=== PATIENT | female | born 1970 | race Caucasian/White ===

== ENCOUNTER 2023-12-01 13:29 | Outpatient (OUT) | payer MEDICAID, SELFPAY ==
[2023-12-01 14:26] LABS: Estimated Average Glucose 105 mg/dL; Glycohemoglobin A1C 5.3 % (4.5-6.2)
[2023-12-01 15:25] LABS: Alanine Aminotransferase 17 U/L (14-59); Albumin Globulin Ratio 0.9; Albumin Level 3.6 g/dL (3.4-5.0); Alkaline Phosphatase 87 U/L (46-116); Anion Gap 10.2; Aspartate Amino Transferase 11 U/L (15-37); BUN Creatinine Ratio 13.8; Bilirubin Total 0.2 mg/dL (0.2-1.0); Calcium 8.9 mg/dL (8.5-10.1); Chloride 102 mmol/L (98-107); Chol HDL Ratio 6.1; Cholesterol 282 mg/dL (<=200); Estimated GFR (African America >60 (>=60); Estimated GFR (Non-African Ame >60 (>=60); Free T3 2.07 pg/mL (2.18-3.98); Globulin 4.2 g/dL; Glucose 91 mg/dL (74-106); HDL Cholesterol 46 mg/dL (40-60); Potassium 4.2 mmol/L (3.5-5.1); Sodium 136 mmol/L (136-145); Thyroid Stimulating Hormone 1.183 uIU/mL (0.358-3.740); Total Protein 7.8 g/dL (6.4-8.2); Triglycerides 143 mg/dL (<=150); VLDL CHOLESTEROL 28.6 mg/dL
[2023-12-01 16:41] LABS: Basophils Absolute Auto 0.1 10^3/uL (0.0-0.1); Basophils Percent Auto 0.9 % (0.2-2.0); Eosinophils Absolute Auto 0.6 10^3/uL (0.0-0.7); Eosinophils Percent Auto 6.8 % (0.9-7.0); Hemoglobin 14.5 g/dL (12.0-16.0); Immature Granulocytes Abs Auto 0.02 10^3/uL (0.00-0.03); Immature Granulocytes Pct Auto 0.2 % (0.0-0.5); Lymphocytes Absolute Auto 2.6 10^3/uL (1.2-3.8); Lymphocytes Percent Auto 32.8 % (20.5-60.0); Mean Corpuscular Hemoglobin 29.1 pg (26.7-34.0); Mean Corpuscular Volume 88.4 fL (81.0-99.0); Mean Platelet Volume 11.2 fL (9.5-13.5); Monocytes Absolute Auto 0.4 10^3/uL (0.3-0.8); Monocytes Percent Auto 4.9 % (1.7-12.0); Neutrophils Absolute Auto 4.4 10^3/uL (1.4-6.5); Neutrophils Percent Auto 54.4 % (43.0-75.0); Platelet Count 299 10^3/uL (150-450); Red Blood Count 4.98 10^6/uL (4.20-5.40); Red Cell Distribution Width 13.2 % (11.0-15.0)
[2023-12-02 12:09] LABS: Insulin 11.5 uIU/mL (2.6-24.9)
== END 2023-12-01 13:30 | disposition home or self-care (01) ==
LOC: LAB 13:31
PROVIDERS: PCP Nurse Practitioner Family; Visit Provider Nurse Practitioner Family
DX: E66.3 Overweight (principal)
CPT/HCPCS: 36415; 80053; 80061; 83036; 83525; 84436; 84443; 84481; 85025

== ENCOUNTER 2024-01-10 09:28 | Outpatient (OUT) | payer MEDICAID, SELFPAY ==
--- OUTSIDE RECORDS SUMMARY | 2024-01-10 09:41 | XMS_ITS | CCD ---
Author Organization [facility] Care Team Providers Care Rabbet Operator Name Role Phone Temple, Rewa Unavailable Unavailable Temple, Rewa Unavailable Unavailable Tempel Unavailable Unavailable LMH Unavailable Unavailable Temple, Rewa Unavailable Unavailable Bravo Ayala Attending Unavailable BrandDerek mosher C Primary Care Unavailable BRANDDEREK MOSHER C Consulting Unavailable CHAYA MCKAY Consulting Unavailable Bravo Ayala Admitting Unavailable Bravo Ayala Attending Unavailable Derek Hermosillo C Primary Care Unavailable Bravo Ayala Attending Unavailable BrandadityaerryDerek C Primary Care Unavailable LIZBETH COLLINS Attending Unavaila ble Brandnomi, Derek C Primary Care Unavailable BRANDADIYTAERRYDEREK C Consulting Unavailable PJ LINDSEY Attending Unavailable CLAUDY CLAYTON Attending Unavailable None, Physician Primary Care Provider [phone] MD Jose Packer Attending Provider [phone] MD Jose Packer Primary Care Provider JENNY Cuelalr Attending Provider Maryam Packer MD Primary Care Provider [phone] MD Jose Packer Primary Care Provider MD Jose Packer Attending Provider MARYAM PACKER Primary Care Unavailable BRIANNE CUELLAR Referring Unavailable POONAM SÁNCHEZ Attending Unavailable MARYAM PACKER Primary Care Unavailable MD Jose Packer Primary Care Provider MD Edwin Kraus Attending Provider [phone] MARYAM PACKER Primary Care Unavailable ZACHARY ORNELAS Attending Unavailable KARLI OJEDA Attending Unavailable KARLI OJEDA Attending Unavailable KARLI OJEDA Referring Unavailable SARKIS ONOFRE Attending Unavailable Allergies Allergy Classification Reported Allergen(s) Allergy Type Date of Onset Reaction(s) Facility (9 sources) Latex; Translations: [Unknown] Allergy to substance (disorder) 6 red and itchy skin, rash/itching [facility] Repository (2 sources) NO KNOWN DRUG ALLERGIES Allergy to substance (disorder) [facility] (2 sources) -No Known Food Allergies Allergy to substance (disorder) [facility] Medications Current Medications Medication Drug Class(es) Dates Sig (Normalized) Sig (Original) amLODIPine 5 mg oral tablet (2 sources) Dihydropyridine Calcium Channel Ibis Start: 08-10-2021 take 1 tablet by mouth once daily amLODIPine (NORVASC) 5 MG tablet take 1 tablet by mouth once daily 0 08/10/2021 Active diazePAM 5 mg oral tablet (3 sources) Benzodiazepine Start: 08-30-2018 take 5 mg by mouth every six hours as needed Diazepam Active 5 MG PO Every 6 hr as needed 12 5 August 30, 2018 3:08pm diphenhydrAMINE hydrochloride 25 mg oral capsule (3 sources) Histamine-1 Receptor Antagonist Start: 01-15-2019 take 25 mg by mouth every six hours as needed Diphenhydramine Hcl Active 25 MG PO Every 6 hr as needed 15 3 January 15, 2019 6:43am FLUoxetine 20 mg oral tablet (3 sources) Serotonin Reuptake Inhibitor Start: 01-15-2018 End: 08-28-2021 take 1 tablet by mouth once daily FLUoxetine (PROZAC) 20 MG tablet Indications: Depression with anxiety Take 1 tablet by mouth daily 30 tablet 3 01/15/2018 08/28/2021 Discontinued (LIST CLEANUP) Start: 09-01-2015 End: 11-06-2015 take 1 capsule by mouth once daily in the morning fluoxetine 20 mg oral capsule 09/01/2015 11/06/2015 take 1 capsule (20 mg) by oral route once daily in the morning patient no longer taking it gabapentin 600 mg oral tablet (10 sources) Anti-epileptic Agent Start: 06-28-2017 take 600 mg by mouth three times daily Gabapentin Active 600 MG PO Three Times Daily 0 November 02, 2017 12:14pm Start: 05-05-2016 End: 10-18-2016 take 1 tablet by mouth four times daily gabapentin 600 mg oral tablet 05/05/2016 10/18/2016 take 1 tablet by oral route 4 times a day Start: 09-01-2015 End: 11-06-2015 take 1 tablet by mouth four times daily gabapentin 600 mg oral tablet 09/01/2015 11/06/2015 take 1 tablet by oral route 4 times a day Neurontin 600 mg take 600 mg three times daily glecaprevir 100 mg / pibrentasvir 40 mg oral tablet (2 sources) Start: 07-30-2021 MAVYRET 100-40 MG TABS tablet hydrOXYzine pamoate 100 mg oral capsule (3 sources) Antihistamine Start: 11-21-2017 End: 08-28-2021 take 1 capsule by mouth every six hours for anxiety hydrOXYzine (VISTARIL) 100 MG capsule Indications: Depression with anxiety , Psychophysiological insomnia take 1 capsule by mouth every 6 hours if needed for anxiety 90 capsule 2 11/21/2017 08/28/2021 Discontinued (LIST CLEANUP) Start: 11-06-2015 End: 03-03-2016 take 1-2 tablets by mouth three times daily as needed for anxiety atarax 25 mg tablet 11/06/2015 03/03/2016 1-2 tablets PO TID as needed for anxiety ibuprofen 800 mg oral tablet (5 sources) Nonsteroidal Anti-inflammatory Drug Start: 10-30-2017 take 800 mg by mouth every eight hours as needed Ibuprofen Active 800 MG PO Every 8 hr as needed October 30, 2017 12:29pm lisinopril 10 mg oral tablet (2 sources) Angiotensin Converting Enzyme Inhibitor Start: 08-11-2021 take 1 tablet by mouth once daily lisinopril (PRINIVIL;ZESTRI L) 10 MG tablet take 1 tablet by mouth once daily 0 08/11/2021 Active omeprazole 40 mg delayed release oral capsule (7 sources) Proton Pump Inhibitor Start: 08-17-2018 take 40 mg by mouth once daily Omeprazole Active 40 MG PO Daily August 30, 2018 3:13pm Start: 04-21-2017 End: 08-19-2017 take 1 capsule by mouth once daily omeprazole 40 mg oral capsule,delayed release(DR/EC) 04/21/2017 08/19/2017 take 1 capsule by oral route daily predniSONE 50 mg oral tablet (6 sources) Start: 08-30-2018 take 50 mg by mouth once daily Prednisone Active 50 MG PO Daily 3 January 15, 2019 6:43am QUEtiapine 100 mg oral tablet (2 sources) Atypical Antipsychotic Start: 08-11-2021 take 1 tablet by mouth at bedtime QUEtiapine (SEROQUEL) 100 MG tablet take 1 tablet by mouth at bedtime 0 08/11/2021 Active tiZANidine 4 mg oral tablet (5 sources) Central alpha-2 Adrenergic Agonist Start: 02-07-2017 End: 08-28-2021 take 1 tablet by mouth every eight hours for muscle spasms tiZANidine (ZANAFLEX) 4 MG tablet take 1 tablet by mouth every 8 hours if needed for back SPASM 60 tablet 3 12/26/2017 08/28/2021 Discontinued (LIST CLEANUP) traZODone hydrochloride 100 mg oral tablet (5 sources) Serotonin Reuptake Inhibitor Start: 04-21-2017 End: 08-28-2021 take 1 tablet by mouth once daily as needed for sleep traZODone (DESYREL) 100 MG tablet Indications: Depression with anxiety , Psychophysiological insomnia Take 1 tablet by mouth nightly as needed for Sleep 90 tablet 3 08/15/2017 08/28/2021 Discontinued (LIST CLEANUP) take 1 tablet by diana th twice daily after mealtime trazodone 150 mg oral tablet take 1 tabl et (150 mg) by oral route 2 times per day after meals Completed/Discontinued Medications Medication Drug Class(es) Dates Sig (Normalized) Sig (Original) fluconazole 150 mg oral tablet (2 sources) Azole Antifungal Start: 02-09-2015 End: 03-02-2015 take 1 tablet by mouth once Diflucan 150 mg oral tablet 02/09/2015 03/02/2015 take 1 tablet (150 mg) by oral route once fluticasone propionate 0.05 mg/actuat metered dose nasal spray (2 sources) Corticosteroid Start: 06-01-2015 End: 09-01-2015 take 1 spray(s) nasal route once daily fluticasone 50 mcg/actuation nasal spray,suspension 06/01/2015 09/01/2015 inhale 1 spray (50 mcg) in each nostril by intranasal route once daily metroNIDAZOLE 500 mg oral tablet (4 sources) Nitroimidazole Antimicrobial Start: 03-04-2016 End: 03-11-2016 take 1 tablet by mouth twice daily Flagyl 500 mg oral tablet 03/04/2016 03/11/2016 take 1 tablet (500 mg) by oral route 2 times per day for 7 days Start: 02-11-2015 End: 02-18-2015 take 1 tablet by mouth twice daily Flagyl 500 mg oral tablet 02/11/2015 02/18/2015 take 1 tablet (500 mg) by oral route 2 times per day for 7 days ondansetron 4 mg disintegrating oral tablet (2 sources) Serotonin-3 Receptor Antagonist Start: 11-01-2016 End: 04-21-2017 take 1 tablet by mouth twice daily as needed ondansetron 4 mg oral tablet,disintegrating 11/01/2016 04/21/2017 dissolve 1 tablet by oral route 2 times a day as needed pregabalin 100 mg oral capsule (4 sources) Start: 12-19-2016 End: 04-21-2017 take 1 capsule by mouth three times daily Lyrica 100 mg oral capsule 12/19/2016 04/21/2017 take 1 capsule (100 mg) by oral route 3 times per day Start: 11-06-2015 End: 11-06-2015 take 2 capsules by mouth twice daily Lyrica 75 mg oral capsule 11/06/2015 11/06/2015 take 2 capsules (150 mg) by oral route 2 times per day Start: 11-06-2015 End: 11-06-2015 take 2 capsules by mouth twice daily Lyrica 75 mg oral capsule 11/06/2015 11/06/2015 take 2 capsules (150 mg) by oral route 2 times per day 24 hr venlafaxine 75 mg extended release oral capsule (2 sources) Serotonin and Norepinephrine Reuptake Inhibitor take 1 capsule by mouth once daily at mealtime Effexor XR 75 mg oral capsule,extended release 24hr take 1 capsule (75 mg) by oral route once daily with food Problems Active Problems Problem Classification Problem Date Documented Date Episodic/Chronic Adjustment disorders (2 sources) Adjustment disorder with mixed anxiety and depressed mood Onset: 03-02-2015 Chronic Administrative/social admission (3 sources) Other reasons for seeking consultation; Translations: [Encounter for issue of repeat prescription] Onset: 11-18-2016 Episodic Anxiety disorders (20 sources) Anxiety; Translations: [Anxiety state, unspecified] Onset: 12-27-2012 08-20-2017 Chronic Chronic obstructive pulmonary disease and bronchiectasis (2 sources) Bronchitis, not specified as acute or chronic; Translations: [Bronchitis, not specified as acute or chronic] Onset: 01-23-2023 Episodic Esophageal disorders (15 sources) Reflux esophagitis; Translations: [Gastro-esophageal reflux disease with esophagitis] Onset: 03-02-2015 06-28-2017 Chronic Hepatitis (16 sources) Chronic hepatitis C without mention of hepatic coma; Translations: [Chronic hepatitis C] Onset: 06-01-2015 Resolved: 06-28-2017 06-28-2017 Chronic Hepatitis (4 sources) Unspecified viral hepatitis C without hepatic coma; Translations: [Viral hepatitis C] Onset: 12-16-2016 06-28-2017 Episodic Mood disorders (10 sources) Major depressive affective disorder, recurrent episode, mild; Translations: [Major depressive affective disorder, recurrent episode, moderate] Onset: 12-27-2012 Chronic Open wounds of extremities (1 source) Laceration of hand without foreign body; Translations: [Laceration without foreign body of left hand, initial encounter] Episodic Osteoarthritis (4 sources) Arthritis; Translations: [Arthritis] Chronic Other non-traumatic joint disorders (2 sources) Arthropathy, unspecified, site unspecified Onset: 11-18-2016 Chronic Other nutritional; endocrine; and metabolic disorders (14 sources) Obesity, unspecified; Translations: [Simple obesity ] Onset: 06-01-2015 Chronic Other nutritional; endocrine; and metabolic disorders (2 sources) Body mass index 30+ - obesity; Translations: [Obesity, unspecified] 08-20-2017 Chronic Residual codes; unclassified (2 sources) Insomnia; Translations: [Insomnia, unspecified] 08-15-2017 Episodic Skin and subcutaneous tissue infections (3 sources) Abscess of abdominal wall; Translations: [Cutaneous abscess of abdominal wall] Episodic Spondylosis; intervertebral disc disorders; other back problems (2 sources) Degeneration of lumbar intervertebral disc; Translations: [Other intervertebral disc degeneration, lumbar region] 06-28-2017 Chronic Substance-related disorders (20 sources) Tobacco use disorder; Translations: [Sedative, hypnotic or anxiolytic abuse, unspecified] Onset: 12-27-2012 06-28-2017 Chronic Unclassified (4 sources) Body Mass Index 34.0-34.9, adult; Translations: [Tobacco user] Onset: 12-16-2016 Chronic Unclassified (2 sources) back problems Unclassified (2 sources) Insulin resistant Unclassified (1 source) Cold Like Symptoms Onset: 04-22-2023 Past or Other Problems Problem Classification Problem Date Documented Da te Episodic/Chronic Abdominal hernia (1 source) Diaphragmatic hernia without obstruction or gangrene; Translations: [Diaphragmatic hernia without obstruction or gangrene] Onset: 06-28-2017 Episodic Abdominal pain (2 sources) Generalized abdominal pain; Translations: [Generalized abdominal pain] Onset: 10-14-2015 Resolved: 06-28-2017 06-28-2017 Episodic Biliary tract disease (2 sources) Gallstone; Translations: [Calculus of gallbladder without cholecystitis without obstruction] Onset: 10-14-2015 Resolved: 06-28-2017 06-28-2017 Episodic Gastrointestinal hemorrhage (2 sources) Rectal hemorrhage; Translations: [Hemorrhage of anus and rectum] Onset: 10-14-2015 Resolved: 06-28-2017 06-28-2017 Episodic Immunizations and screening for infectious disease (2 sources) Screening examination for venereal disease Onset: 05-13-2015 Episodic Medical examination/evaluation (20 sources) Dental examination; Translations: [Routine general medical examination at a health care facility] Onset: 12-27-2012 Episodic Other aftercare (2 sources) Encounter for therapeutic drug monitoring Onset: 01-16-2017 Episodic Other female genital disorders (2 sources) Unspecified noninflammatory disorder of vagina Onset: 02-09-2015 Episodic Other nutritional; endocrine; and metabolic disorders (2 sources) Abnormal weight gain Onset: 09-01-2015 Episodic Spondylosis; intervertebral disc disorders; other back problems (20 sources) Lumbago; Translations: [Low back pain] Onset: 03-02-2015 Episodic Unclassified (2 sources) Other screening mammogram Onset: 01-16-2017 Episodic Unclassified (1 source) [id number] llness_name_3 Unclassified (1 source) [id number] llness_name_5 Unclassified (1 source) [id number] llness_name_3 Unclassified (1 source) [id number]_name_5 Results Test Name Value Interpretation Reference Range Facility SARS/FLU A+B/RSV by NAAT/Mol [facility] 04-22-2023 SARS/FLU A+B/RSV by NAAT/Molecular FLU A PCR Negative (qualifier value) FLU B PCR Negative (qualifier value) RSV by PCR Negative (qualifier value) SARS CoV 2 Not detected (qualifier value) NOTE The Xpert Xpress SARS-CoV-2/Flu/RSV Plus test is a rapid, multiplexed real-time RT-PCR test intended for the simultaneous qualitative detection and differentiation of SARS-CoV-2, influenza A, influenza B and respiratory syncytial virus (RSV) viral RNA from individuals suspected of respiratory viral infection consistent with COVID-19 by their healthcare provider. This test has not been validated in asymptomatic patients. The Xpert Xpress SARS-CoV-2 test is intended for use by qualified and trained operators who are performing tests using either [employer] or [employer] systems and is limited to laboratories that meet the CLIA requirements to perform high and moderate complexity tests. The Xpert Xpress SARS-CoV-2/Flu/RSV Plus is only for use under the Food and Drug Administration's Emergency Use Authorization. Results are for the simultaneous detection and differentiation of SARS-CoV-2, influenza A, influenza B and RSV nucleic acids in clinical specimens. SARS-CoV-2, influenza A, influenza B and RSV RNA identified by this test are generally detectable in upper respiratory samples during the acute phase of infection. Positive results are indicative of the presence of the identified virus, but do not rule out bacterial infection or co-infection with other pathogens not detected by this test. Clinical correlation with patient history and other diagnostic information is necessary to determine patient infection status. The agent detected may not be the definite cause of disease. Negative results do not preclude SARS-CoV-2, influenza A, influenza B and RSV infection and should not be used as the sole basis for treatment or other patient management decisions. Negative results must be combined with clinical observations, patient history and epidemiological information. An Invalid result may occur with specimen-associated inhibition unable to be resolved with specimen repeat. Fact Sheet for Healthcare Providers: https://www.fda.gov/m edia/000847/download Fact Sheet for Patients: https://www.fda.gov/m edia/008086/download Normal [facility] XR CHEST 1 VWon 04-22-2023 XR CHEST 1 VW XR CHEST 1 VW Single view chest History:cough Difficulty breathing, shortness of breath Comparison: None Findings: Single portable view of the chest. No focal opacity, effusion or pneumothorax. Cardiomediastinal silhouette is within normal limits. Impression: No evidence of acute cardiopulmonary process. Finalized by Elvis Chowdhury MD on 04/22/2023 5:31 PM Normal [facility] HCV RNA Quant W/Rflx Genotyp danni 09-22-2021 HCV RNA Detect/Quant Not detected Normal Undetected [facility] Comment on above: Result Comment: Resu lt in log IU/mL is Undetected. Genotype testing was not performed due to HCV viral load below 500 IU/mL. ADDITIONAL INFORMATION The quantification range of this assay is 15 to 100,000,000 IU/mL (1.18 log to 8.00 log IU/mL). Testing was performed using the flavia HCV test ([employer] with the flavia 6800 System. Test Performed by: [place] [address] Dry Primer Powder Blender: Sandeep Collins M.D. Ph.D.; CLIA# [id number] Performed By: #### L 800.4901, L800.4806, L800.0300, L800.4760 #### Main Laboratory ([facility]) [address] [place] [address] Capo Rosario MD ANION GAPon 09-08-2021 Anion gap [Moles/Vol] 13.0 mmol/L Normal 8.0-16.0 [facility] Comment on above: Result Comment: ANIO N GAP = Sodium -(Chloride + CO2) Performed By: #### C MP, EGFR1, CBCND, ANION #### [facility] [address] [place] [address] Anion Gapon 09-08-2021 Anion gap [Moles/Vol] 13.0 mmol/L 8.0 - 16.0 meq/L [facility] Comment on above: ANION GAP = Sodium - (Chloride + CO2) Performed at [facility] [address] [place] [address] CBC NO DIFFERENTIALon 2021 Erythrocyte distribution width (RBC) [Ratio] 13.6 % Normal 11.5-14.5 [facility] Comment on above: Performed By: #### C MP, EGFR1, CBCND, ANION #### [place] [address] Hematocrit (Bld) [Volume fraction] 36.3 % Low 37.0-47.0 [facility] Comment on above: Performed By: #### C MP, EGFR1, CBCND, ANION #### [place] [address] Hemoglobin (Bld) [Mass/Vol] 11.7 g/dL Low 12.0-16.0 [facility] Comment on above: Performed By: #### C MP, EGFR1, CBCND, ANION #### [place] [address] MCH (RBC) [Entitic mass] 28.1 pg Normal 26.0-33.0 [facility] Comment on above: Performed By: #### C MP, EGFR1, CBCND, ANION #### [place] [address] MCHC (RBC) [Mass/Vol] 32.2 g/dL Normal 32.2-35.5 [facility] Comment on above: Performed By: #### C MP, EGFR1, CBCND, ANION #### [facility] [address] [place], [place] [id number] MCV (RBC) [Entitic vol] 87.1 fL Normal 81.0-99.0 [facility] Comment on above: Performed By: #### C MP, EGFR1, CBCND, ANION #### [place] [address] PLATELET 364 thou/mm3 Normal 130-400 [facility] Comment on above: Performed By: #### C MP, EGFR1, CBCND, ANION #### [place] [address] Platelet mean volume (Bld) [Entitic vol] 11.2 fL Normal 9.4-12.4 [facility] Comment on above: Performed By: #### C MP, EGFR1, CBCND, ANION #### [place] [address] RBC 4.17 mill/mm3 Low 4.20-5.40 [facility] Comment on above: Performed By: #### C MP, EGFR1, CBCND, ANION #### [place] [address] RDW-SD 42.6 fL Normal 35.0-45.0 [facility] Comment on above: Performed By: #### C MP, EGFR1, CBCND, ANION #### [place] [address] WBC 8.2 thou/mm3 Normal 4.8-10.8 [facility] Comment on above: Performed By: #### C MP, EGFR1, CBCND, ANION #### [place] [address] COMP. METABOLIC PANELon 08-25 Albumin [Mass/Vol] 4.4 g/dL Normal 3.5-5.1 [facility] Comment on above: Performed By: #### C MP, EGFR1, CBCND, ANION #### [place] [address] ALP [Catalytic activity/Vol] 108 U/L Normal 38-126 [facility] Comment on above: Performed By: #### C MP, EGFR1, CBCND, ANION #### [facility] [employer] [address] [place] [address] ALT [Catalytic activity/Vol] 17 U/L Normal 11-66 [facility] Comment on above: Performed By: #### C MP, EGFR1, CBCND, ANION #### [facility] [address] [place] [address] AST [Catalytic activity/Vol] 20 U/L Normal 5-40 [facility] Comment on above: Performed By: #### C MP, EGFR1, CBCND, ANION #### [facility] [address] [place] [address] Bilirubin [Mass/Vol] 0.7 mg/dL Normal 0.3-1.2 [facility] Comment on above: Performed By: #### C MP, EGFR1, CBCND, ANION #### [facility] [address] [place] [address] Calcium [Mass/Vol] 9.6 mg/dL Normal 8.5-10.5 [facility] Comment on above: Performed By: #### C MP, EGFR1, CBCND, ANION #### [address] [address] Chloride [Moles/Vol] 102 mmol/L Normal 98-111 [facility] Comment on above: Performed By: #### C MP, EGFR1, CBCND, ANION #### [facility] [employer] [address] [place] [address] CO2 [Moles/Vol] 23 mmol/L Normal 23-33 [facility] Comment on above: Performed By: #### C MP, EGFR1, CBCND, ANION #### [address] [address] Creatinine [Mass/Vol] 0.8 mg/dL Normal 0.4-1.2 [facility] Comment on above: Performed By: #### C MP, EGFR1, CBCND, ANION #### [facility] [address] [place] [address] Glucose [Mass/Vol] 128 mg/dL High 70-108 [facility] Comment on above: Performed By: #### C MP, EGFR1, CBCND, ANION #### [facility] [address] [place] [address] Potassium [Moles/Vol] 3.7 mmol/L Normal 3.5-5.2 [facility] Comment on above: Performed By: #### C MP, EGFR1, CBCND, ANION #### [facility] [address] [place] [address] Protein [Mass/Vol] 8.1 g/dL High 6.1-8.0 [facility] Comment on above: Performed By: #### C MP, EGFR1, CBCND, ANION #### [facility] [address] [place] [address] Sodium [Moles/Vol] 138 mmol/L Normal 135-145 [facility] Comment on above: Performed By: #### C MP, EGFR1, CBCND, ANION #### [facility] [address] [place] [address] Urea nitrogen [Mass/Vol] 17 mg/dL Normal 7-22 [facility] Comment on above: Performed By: #### C MP, EGFR1, CBCND, ANION #### [facility] [address] [place] [address] Comprehensive Metabolic Pane conchis 09-08-2021 Albumin [Mass/Vol] 4.4 g/dL 3.5 - 5.1 g/dL [facility] ALP (Bld) [Catalytic activity/Vol] 108 U/L 38 - 126 U/L [facility] ALT [Catalytic activity/Vol] 17 U/L 11 - 66 U/L [facility] Comment on above: Performed at [facility] [address] [place] [address] AST [Catalytic activity/Vol] 20 U/L 5 - 40 U/L [facility] Bilirubin [Mass/Vol] 0.7 mg/dL 0.3 - 1 .2 mg/dL [facility] Calcium [Mass/Vol] 9.6 mg/dL 8.5 - 10. 5 mg/dL [facility] Chloride [Moles/Vol] 102 mmol/L 98 - 111 meq/L [facility] CO2 [Moles/Vol] 23 mmol/L 23 - 33 meq/L [facility] Creatinine [Mass/Vol] 0.8 mg/dL 0.4 - 1.2 mg/dL [facility] Free PSA/Total PSA [Mass fraction] 8.1 g/dL High 6.1 - 8.0 g/dL [facility] Glucose [Mass/Vol] 128 mg/dL High 70 - 108 mg/dL [facility] [employer] Potassium [Moles/Vol] 3.7 mmol/L 3.5 - 5.2 meq/L [facility] Sodium [Moles/Vol] 138 mmol/L 135 - 145 meq/L [facility] [employer] Urea nitrogen (BldV) [Mass/Vol] 17 mg/dL 7 - 22 mg/dL [facility] GFR, ESTIMATEDon 09-08-2021 GFR/1.73 sq M.predicted MDRD (S/P/Bld) [Vol rate/Area] 76 mL/min/{1.73_m2} Abnormal [facility] Comment on above: Result Comment: Stag e Description GFR, ml/min/1.73 m2 - At increased risk > or = 60 (with chronic kidney disease risk factors) 1 Normal or increased GFR > or = 90 2 Mildly or decreased GFR 60 - 89 3 Moderately decreased GFR 30 - 59 4 Severely decreased GFR 15 - 29 5 Kidney failure <15 (or dialysis) Estimated GFR calculated using abbreviated MDRD formula as recommended by National Kidney Foundation. Calculation based upon serum creatinine and adjusted for age, gender & race. Olga Lidia. Internal Med., Vol. 139 (2) pg 137-147. Performed By: #### C MP, EGFR1, CBCND, ANION #### [employer] [address] [place] [address] Glomerular Filtration Rate, Estimatedon 09-08-2021 GFR/1.73 sq M.predicted MDRD (S/P/Bld) [Vol rate/Area] 76 mL/min/{1.73_m2} Abnormal ml/min/1.73m2 [facility] [employer] [facility] Comment on above: Stage Description GF R, ml/min/1.73 m2 - At increased risk > or = 60 (with chronic kidney disease risk factors) 1 Normal or increased GFR > or = 90 2 Mildly or decreased GFR 60 - 89 3 Moderately decreased GFR 30 - 59 4 Severely decreased GFR 15 - 29 5 Kidney failure <15 (or dialysis) Estimated GFR calculated using abbreviated MDRD formula as recommended by National Kidney Foundation. Calculation based upon serum creatinine and adjusted for age, gender & race. Olga Lidia. Internal Med., Vol. 139 (2) pg 137-147. Performed at [facility] [address] [place] [address] No Panel Informationon 09-08 Interpretation and review of laboratory results Abnormal [facility] CBCon 09-07-2021 Erythrocyte distribution width (RBC) [Ratio] 13.6 % 11.5 - 14.5 % [facility] Erythrocyte distribution width (RBC) [Ratio] 42.6 fL 35.0 - 45.[address] [facility] Hematocrit (Bld) [Volume fraction] 36.3 % Low 37.0 - 47.0 % [facility] Hemoglobin (Bld) [Mass/Vol] 11.7 g/dL Low [facility] Interpretation and review of laboratory results Abnormal [facility] MCH (RBC) [Entitic mass] 28.1 pg 26.0 - 33.[address] [facility] MCHC (RBC) [Mass/Vol] 32.2 g/dL [facility] MCV (RBC) [Entitic vol] 87.1 fL 81.0 - 99.[address] [facility] Platelet mean volume (Bld) [Entitic vol] 11.2 fL 9.4 - 12.[address] [facility] Comment on above: Performed at [facility] [address] [place] [address] Platelets (Bld) [#/Vol] 364 10*3/uL [facility] RBC (Bld) [#/Vol] 4.17 10*6/uL Low [facility] WBC (Bld) [#/Vol] 8.2 10*3/uL [facility] Hepatitis C PCR/Viral Loadon 06-10-2021 Hepatitis C PCR/Viral Load [id number] IU/mL [facility] Comment on above: Result Comment: Resu lt in log IU/mL is 7.11. ADDITIONAL INFORMATION The quantification range of this assay is 15 to 100,000,000 IU/mL (1.18 log to 8.00 log IU/mL). Testing was performed using the flavia HCV test ([employer] with the flavia 6800 System. Test Performed by: [place] [address] [employer] Primer Powder Blender: Sandeep Collins M.D. Ph.D.; CLIA# [id number] Performed By: #### L 800.4901, L800.4806, L800.0300, L800.4760 #### Main Laboratory ([facility]) [address] [place], [place] [id number] Capo Rosario MD Hepatitis C Virus Genotypeon 06-10-2021 HCV Genotype 1a High Undetected [facility] Comment on above: Result Comment: ---- ADDITIONAL INFORMATION This test was performed using the Waters RealTime HCV Genotype II assay ([employer] [place], [place]). Test Performed by: [place] [address] [employer] Pow[employer] Blender: Sandeep Collins M.D. Ph.D.; CLIA# [id number] Performed By: #### L 800.4901, L800.4806, L800.0300, L800.4760 #### Main Laboratory ([facility]) [facility] [place] [address] Capo Rosario MD HIV 1&2 Evaluationon 022 HIV 1&2 Evaluation Non-Reactive Normal Nonreactive [facility] Comment on above: Performed By: #### L 800.4901, L800.4806, L800.0300, L800.4760 #### Main Laboratory ([facility]) [facility], [place] [id number] Capo Rosario MD Hepatitis A Antibody, IgMon 06-09-2021 Hepatitis A Antibody, IgM Non-Reactive Normal Nonreactive [facility] Comment on above: Performed By: #### L 800.4901, L800.4806, L800.0300, L800.4760 #### Main Laboratory ([facility]) [address] [place], [place] [id number] Capo Rosario MD Hepatitis B Surface Abon Hepatitis B Surface Ab Non-Reactive Normal Nonreactive [facility] Comment on above: Performed By: #### L 800.4901, L800.4806, L800.0300, L800.4760 #### Main Laboratory ([facility]) [address] [place], [place] [address] Capo Rosario MD Hepatitis B Surface Agon Hep B Surface Antigen Non-Reactive Normal Nonreactive [facility] Comment on above: Performed By: #### L 800.4901, L800.4806, L800.0300, L800.4760 #### Main Laboratory ([facility]) [address] [place] [address] Capo Rosario MD Absolute lymphocyte counton 06-08-2021 Lymphocytes Auto (Unsp spec) [#/Vol] 2800 /cmm 7225-6920 [facility] Work Phone: Albumin [Mass/volume] in Ser um or Plasmaon 06-08-2021 Albumin [Mass/Vol] 3.5 g/dL 3.5-5.0 [facility] Work Phone: Amylaseon 06-08-2021 Amylase [Catalytic activity/Vol] 46 U/L Normal 30-100 [facility] Comment on above: Order Comment: Is Pa tient Fasting? Yes Performed By: #### L 800.4901, L800.4806, L800.0300, L800.4760 #### Main Laboratory ([facility]) [address] [place] [id number] Capo Rosario MD Basophils Auto (Bld) [#/Vol] on 06-08-2021 Basophils (Bld) [#/Vol] 0 /cmm 0-200 [facility] Work Phone: Basophils/100 WBC Auto (Bld) on 06-08-2021 Basophils/100 WBC (Bld) 0.5 % 0-2 [facility] Work Phone: Blood absolute eosinophil co unton 06-08-2021 Eosinophils (Bld) [#/Vol] 400 /cmm 0-500 [facility] Work Phone: [phone] Blood anion gapon 06-08-2021 Anion gap (Bld) [Moles/Vol] 6 mmol/L 4-12 [facility] Work Phone: Blood hematocrit (volume fra ction)on 06-08-2021 Hematocrit (Bld) [Volume fraction] 39.3 % 35.0-44.0 [facility] Work Phone: Blood hemoglobin measurement (mass/volume)on 06-08-2021 Hemoglobin (Bld) [Mass/Vol] 13.0 g/dL 12.0-15.0 [facility] Work Phone: CBC with Differentialon 05-25 Abs Baso Count 0 /cmm Normal 0-200 [facility] Comment on above: Performed By: #### L 800.4901, L800.4806, L800.0300, L800.4760 #### Main Laboratory ([facility]) [address] [place] [id number] Capo Rosario MD Abs Eos Count 400 /cmm Normal 0-500 [facility] Comment on above: Performed By: #### L 800.4901, L800.4806, L800.0300, L800.4760 #### Main Laboratory ([facility]) [address] [place], [place] [address] Capo Rosario MD Abs Lymph Count 2800 /cmm Normal 1003-5149 [facility] Comment on above: Performed By: #### L 800.4901, L800.4806, L800.0300, L800.4760 #### Main Laboratory ([facility]) [address] [place] [address] Capo Rosario MD Abs Shoshone Count 600 /cmm Normal 0-800 [facility] Comment on above: Performed By: #### L 800.4901, L800.4806, L800.0300, L800.4760 #### Main Laboratory ([facility]) [address] [place] [address] Capo Rosario MD Abs Neut Count 3200 /cmm Normal 5816-3519 [facility] Comment on above: Performed By: #### L 800.4901, L800.4806, L800.0300, L800.4760 #### Main Laboratory ([facility]) [address] [place], [place] [address] Capo Rosario MD Basophils/100 WBC (Bld) 0.5 % Normal 0-2 [facility] Comment on above: Performed By: #### L 800.4901, L800.4806, L800.0300, L800.4760 #### Main Laboratory ([facility]) [address] [place] [address] Capo Rosario MD EOS-Auto Diff 5.5 % Normal 0-6 [facility] Comment on above: Performed By: #### L 800.4901, L800.4806, L800.0300, L800.4760 #### Main Laboratory ([facility]) [address] [place] [address] Capo Rosario MD Erythrocyte distribution width (RBC) [Ratio] 15.4 % Normal 12.0-16.0 [facility] Comment on above: Performed By: #### L 800.4901, L800.4806, L800.0300, L800.4760 #### Main Laboratory ([facility]) [address] [place] [address] Capo Rosario MD Hematocrit (Bld) [Volume fraction] 39.3 % Normal 35.0-44.0 [facility] Comment on above: Performed By: #### L 800.4901, L800.4806, L800.0300, L800.4760 #### Main Laboratory ([facility]) [address] [place] [address] Capo Rosario MD Hemoglobin (Bld) [Mass/Vol] 13.0 g/dL Normal 12.0-15.0 [facility] Comment on above: Performed By: #### L 800.4901, L800.4806, L800.0300, L800.4760 #### Main Laboratory ([facility]) [address] [place] [address] Capo Rosario MD Lymphocytes/100 WBC (Bld) 40.5 % Normal 15-45 [facility] Comment on above: Performed By: #### L 800.4901, L800.4806, L800.0300, L800.4760 #### Main Laboratory ([facility]) [address] [place] [address] Capo Rosario MD MCH (RBC) [Entitic mass] 27.6 pg Normal 27.5-33.0 [facility] Comment on above: Performed By: #### L 800.4901, L800.4806, L800.0300, L800.4760 #### Main Laboratory ([facility]) [address] [place] [address] Capo Rosario MD MCHC (RBC) [Mass/Vol] 33.2 g/dL Normal 33.0-36.0 [facility] Comment on above: Performed By: #### L 800.4901, L800.4806, L800.0300, L800.4760 #### Main Laboratory ([facility]) [address] [place] [address] Capo Rosario MD MCV 83.3 CU REMI Normal 80-97 [facility] Comment on above: Performed By: #### L 800.4901, L800.4806, L800.0300, L800.4760 #### Main Laboratory ([facility]) [address] [place], [place] [address] Capo Rosario MD Shoshone- Auto Diff 8.0 % Normal 2-10 [facility] Comment on above: Performed By: #### L 800.4901, L800.4806, L800.0300, L800.4760 #### Main Laboratory ([facility]) [address] [place], [place] [address] Capo Rosario MD Neut-Auto Diff 45.5 % Normal 40-70 [facility] Comment on above: Performed By: #### L 800.4901, L800.4806, L800.0300, L800.4760 #### Main Laboratory ([facility]) [address] [place], [place] [address] Capo Rosario MD NRBC-Auto 0.0 /100 WBC Normal <1 [facility] Comment on above: Performed By: #### L 800.4901, L800.4806, L800.0300, L800.4760 #### Main Laboratory ([facility]) [address] [place], [place] [address] Capo Rosario MD Platelet Count 292 th/cmm Normal 150-400 [facility] Comment on above: Performed By: #### L 800.4901, L800.4806, L800.0300, L800.4760 #### Main Laboratory ([facility]) [address] [place], [facility] Capo Rosario MD RBC 4.72 mil/cmm Normal 4.00-5.10 [facility] Comment on above: Performed By: #### L 800.4901, L800.4806, L800.0300, L800.4760 #### Main Laboratory ([facility]) [address] [place], [facility] Capo Rosario MD WBC 6.9 th/cmm Normal 4.4-10.5 [facility] Comment on above: Performed By: #### L 800.4901, L800.4806, L800.0300, L800.4760 #### Main Laboratory ([facility]) [address] [place] [address] Capo Rosario MD Comprehensive Metabolic Pane conchis 06-08-2021 Albumin [Mass/Vol] 3.5 g/dL Normal 3.5-5.0 [facility] Comment on above: Order Comment: Is Pa tient Fasting? Yes Performed By: #### L 800.4901, L800.4806, L800.0300, L800.4760 #### Main Laboratory ([facility]) [address] [place] [id number] Capo Rosario MD Albumin/Globulin [Mass ratio] 0.8 {ratio} Low 1.5-2.5 [facility] Comment on above: Order Comment: Is Pa tient Fasting? Yes Performed By: #### L 800.4901, L800.4806, L800.0300, L800.4760 #### Main Laboratory ([facility]) [address] [place], [place] [id number] Capo Rosario MD Alk Phos 77 IU/L Normal 39-118 [facility] Comment on above: Order Comment: Is Pa tient Fasting? Yes Performed By: #### L 800.4901, L800.4806, L800.0300, L800.4760 #### Main Laboratory ([facility]) [address] [place] [address] Capo Rosario MD ALT [Catalytic activity/Vol] 47 U/L High 10-40 [facility] Comment on above: Order Comment: Is Pa tient Fasting? Yes Performed By: #### L 800.4901, L800.4806, L800.0300, L800.4760 #### Main Laboratory ([facility]) [address] [place], [place] [address] Capo Rosario MD Anion gap [Moles/Vol] 6 mmol/L Normal 4-12 [facility] Comment on above: Order Comment: Is Pa tient Fasting? Yes Performed By: #### L 800.4901, L800.4806, L800.0300, L800.4760 #### Main Laboratory ([facility]) [address] [place] [address] Capo Rosario MD AST [Catalytic activity/Vol] 38 U/L Normal 15-41 [facility] Comment on above: Order Comment: Is Pa tient Fasting? Yes Performed By: #### L 800.4901, L800.4806, L800.0300, L800.4760 #### Main Laboratory ([facility]) [address] [place] [address] Capo Rosario MD Bili,Total 0.4 mg/dL Normal 0.2-1.0 [facility] Comment on above: Order Comment: Is Pa tient Fasting? Yes Performed By: #### L 800.4901, L800.4806, L800.0300, L800.4760 #### Main Laboratory ([facility]) [address] [place] [address] Capo Rosario MD Calcium [Mass/Vol] 9.20 mg/dL Normal 8.8-10.5 [facility] Comment on above: Order Comment: Is Pa tient Fasting? Yes Performed By: #### L 800.4901, L800.4806, L800.0300, L800.4760 #### Main Laboratory ([facility]) [address] [place] [address] Capo Rosario MD Chloride [Moles/Vol] 104 mmol/L Normal 101-111 [facility] Comment on above: Order Comment: Is Pa tient Fasting? Yes Performed By: #### L 800.4901, L800.4806, L800.0300, L800.4760 #### Main Laboratory ([facility]) [address] [place], [place] [address] Capo Rosario MD CO2 [Moles/Vol] 26 mmol/L Normal 21-32 [facility] Comment on above: Order Comment: Is Pa tient Fasting? Yes Performed By: #### L 800.4901, L800.4806, L800.0300, L800.4760 #### Main Laboratory ([facility]) [address] [place] [address] Capo Rosario MD Creatinine [Mass/Vol] 0.71 mg/dL Normal 0.60-1.30 [facility] Comment on above: Order Comment: Is Pa tient Fasting? Yes Performed By: #### L 800.4901, L800.4806, L800.0300, L800.4760 #### Main Laboratory ([facility]) [address] [place], [place] [address] Capo Rosario MD GFR Calculation > 60 Normal [facility] Comment on above: Order Comment: Is Pa tient Fasting? Yes Result Comment: [employer] alireza Kidney Disease stages by NKDF Stage eGFR I >90 II 60-89 III 30-59 IV 15-29 V <15 or dialysis AGE(years) AVERAGE GFR 40-49 99 ml/min/1.73 square meter Note:This result is normalized to 1.73 square meter body surface area. Height and weight are not factored. Performed By: #### L 800.4901, L800.4806, L800.0300, L800.4760 #### Main Laboratory ([facility]) [address] [place] [address] Capo Rosario MD Glucose [Mass/Vol] 75 mg/dL Normal 70-110 [facility] Comment on above: Order Comment: Is Pa tient Fasting? Yes Result Comment: *Thi s reference range applies to fasting specimens only. Performed By: #### L 800.4901, L800.4806, L800.0300, L800.4760 #### Main Laboratory ([facility]) [address] [place] [address] Capo Rosario MD Potassium [Moles/Vol] 3.8 mmol/L Normal 3.6-5.0 [facility] Comment on above: Order Comment: Is Pa tient Fasting? Yes Performed By: #### L 800.4901, L800.4806, L800.0300, L800.4760 #### Main Laboratory ([facility]) [address] [place] [address] Capo Rosario MD Protein [Mass/Vol] 7.8 g/dL Normal 6.2-8.0 [facility] Comment on above: Order Comment: Is Pa tient Fasting? Yes Performed By: #### L 800.4901, L800.4806, L800.0300, L800.4760 #### Main Laboratory ([facility]) [address] [place] [address] Cpao Rosario MD Sodium [Moles/Vol] 136 mmol/L Normal 135-145 [facility] Comment on above: Order Comment: Is Pa tient Fasting? Yes Performed By: #### L 800.4901, L800.4806, L800.0300, L800.4760 #### Main Laboratory ([facility]) [address] [place] [address] Capo Rosario MD Urea nitrogen [Mass/Vol] 13 mg/dL Normal 7-20 [facility] Comment on above: Order Comment: Is Pa tient Fasting? Yes Performed By: #### L 800.4901, L800.4806, L800.0300, L800.4760 #### Main Laboratory ([facility]) [address] [place] [address] Capo Rosario MD Eosinophils/100 WBC Auto (Bl d)on 06-08-2021 Eosinophils/100 WBC (Bld) 5.5 % 0-6 [facility] Work Phone: Erythrocyte distribution wid th ratioon 06-08-2021 Erythrocyte distribution width (RBC) [Ratio] 15.4 % 12.0-16.0 [facility] Work Phone: Hepatitis C virus (HCV) RNA genotype analysison 06-08-2021 HCV genotype LUIS ENRIQUE+probe Nom 1a High [facility] Work Phone: Comment on above: A DDITIONAL INFORMATION This test was performed using the Waters RealTime HCVGenotype II assay ([employer] [place], [place]).Test Performed by:[facility] [place] [address]Btd Director: Sandeep Collins M.D. Ph.D.; CLIA# [id number] Lipaseon 06-08-2021 Lipase [Catalytic activity/Vol] 31 U/L Normal 21-51 [facility] Comment on above: Order Comment: Is Erasto cordoba Fasting? Yes Performed By: #### L 800.4901, L800.4806, L800.0300, L800.4760 #### Main Laboratory ([facility]) [address] [place] [address] Capo Rosario MD Lymphocytes/100 WBC Auto (Bl d)on 06-08-2021 Lymphocytes/100 WBC (Bld) 40.5 % 15-45 [facility] Work Phone: [phone] MCH Auto (RBC) [Entitic mass ]on 06-08-2021 MCH (RBC) [Entitic mass] 27.6 pg 27.5-33.0 [facility] Work Phone: [phone] MCHC Auto (RBC) [Mass/Vol]on 06-08-2021 MCHC (RBC) [Mass/Vol] 33.2 g/dL 33.0-36.0 [facility] Work Phone: MCV Auto (RBC) [Entitic vol] on 06-08-2021 MCV (RBC) [Entitic vol] 83.3 CU REMI 80-97 [facility] Work Phone: [phone] Monocytes Auto (Bld) [#/Vol] on 06-08-2021 Monocytes (Bld) [#/Vol] 600 /cmm 0-800 [facility] Work Phone: [phone] Monocytes/100 WBC Auto (Bld) on 06-08-2021 Monocytes/100 WBC (Bld) 8.0 % 2-10 [facility] Work Phone: [phone] Neutrophils Auto (Bld) [#/Vo l]on 06-08-2021 Neutrophils (Bld) [#/Vol] 3200 /cmm 1334-3098 [facility] Work Phone: [phone] Neutrophils/100 WBC Auto (Bl d)on 06-08-2021 Neutrophils/100 WBC (Bld) 45.5 % 40-70 [facility] Work Phone: No Panel Informationon 06-08 Glomerular Filtration Rate Calc > 60 >60 [facility] Work Phone: Comment on above: AGE(years) AVERAGE G FR 40-49 99 ml/min/1.73 square meterNote:This result is normalized to 1.73 square meter body surface area. Height and weight are not factored.Chronic Kidney Disease stages by NKDFStage eGFR I >90 II 60-89 III 30-59 IV 15-29 V <15 or dialysis Nucleated RBC Auto (Bld) [#/ Vol]on 06-08-2021 Nucleated RBC (Bld) [#/Vol] 0.0 /100 WBC <1 [facility] Work Phone: [phone] Platelets Auto (Bld) [#/Vol] on 06-08-2021 Platelets (Bld) [#/Vol] 292 th/cmm 150-400 [facility] Work Phone: RBC Auto (Bld) [#/Vol]on RBC (Bld) [#/Vol] 4.72 mil/cmm 4.00-5.10 [facility] Work Phone: Serum HIV 1+2 antibody detec tionon 06-08-2021 HIV 1+2 Ab Ql (S) Non-Reactive Nonreactive [facility] Work Phone: Serum hepatitis A virus IgM antibody detectionon 06-08-2021 HAV IgM Ql (S) Non-Reactive Nonreactive [facility] Work Phone: Serum hepatitis B virus surf clari antibody detectionon 06-08-2021 HBV surface Ab Ql (S) Non-Reactive Nonreactive [facility] Work Phone: Serum hepatitis B virus surf clari antigen detectionon 06-08-2021 HBV surface Ag Ql (S) Non-Reactive Nonreactive [facility] Work Phone: Serum or plasma alanine pichardo otransferase measurement (enzymatic activity/volume)on 06-08-2021 ALT [Catalytic activity/Vol] 47 U/L High 10-40 [facility] Work Phone: [phone] Serum or plasma albumin/glob ulin mass ratioon 06-08-2021 Albumin/Globulin [Mass ratio] 0.8 {ratio} Low 1.5-2.5 [facility] Work Phone: Serum or plasma alkaline shira sphatase measurement (enzymatic activity/volume)on 06-08-2021 ALP [Catalytic activity/Vol] 77 U/L 39-118 [facility] Work Phone: [phone] Serum or plasma amylase mehdi urement (enzymatic activity/volume)on 06-08-2021 Amylase [Catalytic activity/Vol] 46 U/L 30-100 [facility] Work Phone: Serum or plasma aspartate am inotransferase measurement (enzymatic activity/volume)on 06-08-2021 AST [Catalytic activity/Vol] 38 U/L 15-41 [facility] Work Phone: Serum or plasma calcium mehdi urement (mass/volume)on 06-08-2021 Calcium [Mass/Vol] 9.20 mg/dL 8.8-10.5 [facility] Work Phone: Serum or plasma carbon dioxi de, total measurement (moles/volume)on 06-08-2021 CO2 [Moles/Vol] 26 mmol/L - [facility] Work Phone: Serum or plasma chloride bjorn surement (moles/volume)on 06-08-2021 Chloride [Moles/Vol] 104 mmol/L 101-111 [facility] Work Phone: Serum or plasma creatinine m easurement (mass/volume)on 06-08-2021 Creatinine [Mass/Vol] 0.71 mg/dL 0.60-1.30 [facility] Work Phone: Serum or plasma glucose mehdi urement (mass/volume)on 06-08-2021 Glucose [Mass/Vol] 75 mg/dL 70-110 [facility] Work Phone: Comment on above: *This reference rang e applies to fasting specimens only. Serum or plasma hepatitis C virus RNA measurement (units/volume) (viral load) by probon 06-08-2021 HCV RNA LUIS ENRIQUE+probe Qn [id number] IU/mL High [facility] Work Phone: Comment on above: Result in log IU/mL is 7.11. ADDITIONAL INFORMATION The quantification range of this assay is 15 to 100,000,000IU/mL (1.18 log to 8.00 log IU/mL). Testing was performedusing the flavia HCV test ([employer]with the flavia Zimory[employer] System.Test Performed by:[facility] [place] [address]Xys Director: Sandeep Collins M.D. Ph.D.; CLIA# [id number] Serum or plasma lipase measu rement (enzymatic activity/volume)on 06-08-2021 Lipase [Catalytic activity/Vol] 31 U/L - [facility] Work Phone: Serum or plasma potassium me asurement (moles/volume)on 06-08-2021 Potassium [Moles/Vol] 3.8 mmol/L 3.6-5.0 [facility] Work Phone: Serum or plasma protein mehdi urement (mass/volume)on 06-08-2021 Protein [Mass/Vol] 7.8 g/dL 6.2-8.0 [facility] Work Phone: Serum or plasma sodium measu rement (moles/volume)on 06-08-2021 Sodium [Moles/Vol] 136 mmol/L 135-145 [facility] Work Phone: Serum or plasma total biliru bin measurement (mass/volume)on 06-08-2021 Bilirubin [Mass/Vol] 0.4 mg/dL 0.2-1.0 [facility] Work Phone: Serum or plasma urea nitroge n measurement (mass/volume)on 06-08-2021 Urea nitrogen [Mass/Vol] 13 mg/dL 7-20 [facility] Work Phone: WBC Auto (Bld) [#/Vol]on WBC (Bld) [#/Vol] 6.9 th/cmm 4.4-10.5 [facility] Work Phone: US Abd Right Upper Quadranto n 06-05-2021 US Abd Right Upper Quadrant [facility] Radiology Department Patient: SANDY HUIZAR. : 1970 Sex: [place], [place] [address] Location: [facility] [phone] Unit #: [id number] Ordering Phys: Brianne Cuellar [employer] Exam Date: 06/08/21 Exam: US US Abd Right Upper Quadrant Result: See Report EXAM: US ABDOMEN LIMITED, RIGHT UPPER QUADRANT CLINICAL INDICATION: CHRONIC VIRAL HEPATITIS C TECHNIQUE: Real-time ultrasound of the right upper quadrant with image documentation. This report was created using [employer] report generation technology. COMPARISON: CT 10/30/2017 FINDINGS: LIVER: Unremarkable. There is normal echotexture. No focal hepatic lesion. No intrahepatic biliary ductal dilation. GALLBLADDER: Cholecystectomy. COMMON BILE DUCT: Unremarkable as visualized. The proximal common bile duct is within normal limits for the patient''s age. PANCREAS: Unremarkable as visualized. No focal abnormality is demonstrated in the pancreas. No pancreatic ductal dilatation. RIGHT KIDNEY: Unremarkable. There is no hydronephrosis. No shadowing calculus. No focal lesion or perinephric collection is demonstrated. IMPRESSION: Normal right upper quadrant ultrasound. Electronically Signed: John Alejandro MD (Brooks) at 14:41 EDT Reading Location ID and State: [facility] / [place] , Service support , cc: Brianne Cuellar CNP; Jose Packer MD Dictated by: Shira Alejandro MD on 06/08/21 1441 Technologist: Liza Barakat RDMD RVT RDCS Transcribed by: Shira Alejandro on 06/08/21 1441 Report Signed by: Javon MYRICK,Shira Manley on 06/08/21 1441 Normal [facility] US Elastography Parenchymaon 06-05-2021 US Elastography Parenchyma [facility] Radiology Department Patient: SANDY HUIZAR. : 1970 Sex: [place], [place] [address] Location: [facility] [phone] Unit #: [id number] Ordering Phys: Brianne Cuellar CNP Exam Date: 06/08/21 Exam: US US Elastography Parenchyma Result: See Report STUDY: ABDOMINAL ULTRASOUND - ELASTOGRAPHY REASON FOR VISIT: Female, 50 years old. Chronic viral hepatitis C TECHNIQUE: Point quantification shear wave elastography was performed ([employer]). TECHNICAL QUALITY: Adequate. COMPARISON: None. FINDINGS: Liver: There is no demonstrated mass lesion. Median liver stiffness measured 6.6 kPa. IMPRESSION: Liver stiffness measures 6.6 kPa compatible with F2-F3 (Mild to moderate liver fibrosis) Metavir score. Electronically Signed: John Alejandro MD (Brooks) at 14:41 EDT , cc: Brianne Cuellar HEATING AND VENTILATING TENDER; Jose Packer MD Dictated by: Shira Alejandro MD on 06/08/21 144 Technologist: Liza Barakat RDMD RVT RDCS Transcribed by: Shira Alejandro on 06/08/211440 Report Signed by: Javon MYRICK,Shira Manley on 06/08/21 144 Normal [facility] Hepatitis C PCR/Viral Loadon 05-19-2021 Hepatitis C PCR/Viral Load [id number] IU/mL [facility] Comment on above: Result Comment: Resu lt in log IU/mL is 7.18. ADDITIONAL INFORMATION The quantification range of this assay is 15 to 100,000,000 IU/mL (1.18 log to 8.00 log IU/mL). Testing was performed using the flavia HCV test ([employer] with the flavia 6800 System. Test Performed by: [facility] [address] [place] [address] Dry Primer Powder Blender: Sandeep Collins M.D. Ph.D.; CLIA# [id number] Performed By: #### L 910.90943 #### [facility] [address] [place] [address] Serum or plasma hepatitis C virus RNA measurement (units/volume) (viral load) by probon 05-17-2021 HCV RNA LUIS ENRIQUE+probe Qn [id number] IU/mL [facility] Work Phone: Comment on above: Result in log IU/mL is 7.18. ADDITIONAL INFORMATION The quantification range of this assay is 15 to 100,000,000IU/mL (1.18 log to 8.00 log IU/mL). Testing was performedusing the flavia HCV test ([employer]with the flavia 6800 System.Test Performed by:[facility] [place] [id number] Director: Sandeep Collins M.D. Ph.D.; CLIA# [id number] Absolute lymphocyte counton 05-12-2021 Lymphocytes Auto (Unsp spec) [#/Vol] 2200 /cmm [phone] [facility] Work Phone: [phone] Albumin [Mass/volume] in Ser um or Plasmaon 05-12-2021 Albumin [Mass/Vol] 3.9 g/dL 3.5-5.0 [facility] Work Phone: [phone] Basophils Auto (Bld) [#/Vol] on 05-12-2021 Basophils (Bld) [#/Vol] 100 /cmm 0-200 [facility] Work Phone: [phone] Basophils/100 WBC Auto (Bld) on 05-12-2021 Basophils/100 WBC (Bld) 1.0 % 0-2 [facility] Work Phone: [phone] Blood absolute eosinophil co unton 05-12-2021 Eosinophils (Bld) [#/Vol] 300 /cmm 0-500 [facility] Work Phone: [phone] Blood anion gapon 05-12-2021 Anion gap (Bld) [Moles/Vol] 7 mmol/L 4-12 [facility] Work Phone: [phone] Blood hematocrit (volume fra ction)on 05-12-2021 Hematocrit (Bld) [Volume fraction] 39.1 % 35.0-44.0 [facility] Work Phone: [phone] Blood hemoglobin measurement (mass/volume)on 05-12-2021 Hemoglobin (Bld) [Mass/Vol] 12.9 g/dL 12.0-15.0 [facility] Work Phone: CBC with Differentialon 04-27 Abs Baso Count 100 /cmm Normal 0-200 [facility] Comment on above: Performed By: #### L 100.0000 #### Main Laboratory ([facility]) [address] [place] [address] Capo Rosario MD Abs Eos Count 300 /cmm Normal 0-500 [facility] Comment on above: Performed By: #### L 100.0000 #### Main Laboratory ([facility]) [address] [place] [address] Capo Rosario MD Abs Lymph Count 2200 /cmm Normal [id number] [facility] Comment on above: Performed By: #### L 100.0000 #### Main Laboratory ([facility]) [address] [place] [address] Capo Rosario MD Abs Shoshone Count 600 /cmm Normal 0-800 [facility] Comment on above: Performed By: #### L 100.0000 #### Main Laboratory ([facility]) [address] [place] [address] Capo Rosario MD Abs Neut Count 3100 /cmm Normal 7227-6054 [facility] Comment on above: Performed By: #### L 100.0000 #### Main Laboratory ([facility]) [address] [place] [address] Capo Rosario MD Basophils/100 WBC (Bld) 1.0 % Normal 0-2 [facility] Comment on above: Performed By: #### L 100.0000 #### Main Laboratory ([facility]) [address] [place] [address] Capo Rosario MD EOS-Auto Diff 5.1 % Normal 0-6 [facility] Comment on above: Performed By: #### L 100.0000 #### Main Laboratory ([facility]) [address] [place] [address] Capo Rosario MD Erythrocyte distribution width (RBC) [Ratio] 16.2 % High 12.0-16.0 [facility] Comment on above: Performed By: #### L 100.0000 #### Main Laboratory ([facility]) [address] [place], [place] [address] Capo Rosario MD Hematocrit (Bld) [Volume fraction] 39.1 % Normal 35.0-44.0 [facility] Comment on above: Performed By: #### L 100.0000 #### Main Laboratory ([facility]) [address] [place], [place] [address] Capo Rosario MD Hemoglobin (Bld) [Mass/Vol] 12.9 g/dL Normal 12.0-15.0 [facility] Comment on above: Performed By: #### L 100.0000 #### Main Laboratory ([facility]) [address] [place], [place] [address] Capo Rosario MD Lymphocytes/100 WBC (Bld) 35.3 % Normal 15-45 [facility] Comment on above: Performed By: #### L 100.0000 #### Main Laboratory ([facility]) [address] [place], [place] [address] Capo Rosario MD MCH (RBC) [Entitic mass] 27.6 pg Normal 27.5-33.0 [facility] Comment on above: Performed By: #### L 100.0000 #### Main Laboratory ([facility]) [address] [place], [place] [address] Capo Rosario MD MCHC (RBC) [Mass/Vol] 33.0 g/dL Normal 33.0-36.0 [facility] Comment on above: Performed By: #### L 100.0000 #### Main Laboratory ([facility]) [address] [place] [address] Capo Rosario MD MCV 83.7 CU REMI Normal 80-97 [facility] Comment on above: Performed By: #### L 100.0000 #### Main Laboratory ([facility]) [address] [place], [place] [address] Capo Rosario MD Shoshone- Auto Diff 10.0 % Normal 2-10 [facility] Comment on above: Performed By: #### L 100.0000 #### Main [facility] ([facility]) [address] [place], [place] [address] Capo Rosario MD Neut-Auto Diff 48.6 % Normal 40-70 [facility] Comment on above: Performed By: #### L 100.0000 #### Main Laboratory ([facility]) [address] [place], [place] [address] Capo Rosario MD NRBC-Auto 0.1 /100 WBC Normal <1 [facility] Comment on above: Performed By: #### L 100.0000 #### Main Laboratory ([facility]) [address] [place], [place] [address] Capo Rosario MD Platelet Count 281 th/cmm Normal 150-400 [facility] Comment on above: Performed By: #### L 100.0000 #### Main Laboratory ([facility]) [address] [place] [address] Capo Rosario MD RBC 4.67 mil/cmm Normal 4.00-5.10 [facility] Comment on above: Performed By: #### L 100.0000 #### Main Laboratory ([facility]) [address] [place], [place] [address] Capo Rosario MD WBC 6.4 th/cmm Normal 4.4-10.5 [facility] Comment on above: Performed By: #### L 100.0000 #### Main [facility] ([facility]) [address] [place], [place] [address] Capo Rosario MD Comprehensive Metabolic Pane conchis 05-12-2021 Albumin [Mass/Vol] 3.9 g/dL Normal 3.5-5.0 [facility] Comment on above: Order Comment: Is Pa tient Fasting? No Performed By: #### L 400.0076, L404.7150 #### Main Laboratory ([facility]) [address] [place] [address] Capo Rosario MD Albumin/Globulin [Mass ratio] 1.0 {ratio} Low 1.5-2.5 [facility] Comment on above: Order Comment: Is Pa tient Fasting? No Performed By: #### L 400.0076, L404.7150 #### Main Laboratory ([facility]) [address] [place], [facility] Capo Rosario MD Alk Phos 83 IU/L Normal 39-118 [facility] Comment on above: Order Comment: Is Pa tient Fasting? No Performed By: #### L 400.0076, L404.7150 #### Main Laboratory ([facility]) [address] [place] [address] Capo Rosario MD ALT [Catalytic activity/Vol] 64 U/L High 10-40 [facility] Comment on above: Order Comment: Is Pa tient Fasting? No Performed By: #### L 400.0076, L404.7150 #### Main [facility] ([facility]) [address] [place] [address] Capo Rosario MD Anion gap [Moles/Vol] 7 mmol/L Normal 4-12 [facility] Comment on above: Order Comment: Is Pa tient Fasting? No Performed By: #### L 400.0076, L404.7150 #### Main Laboratory ([facility]) [address] [place] [address] Capo Rosario MD AST [Catalytic activity/Vol] 56 U/L High 15-41 [facility] Comment on above: Order Comment: Is Pa tient Fasting? No Performed By: #### L 400.0076, L404.7150 #### Main [facility] ([facility]) [address] [place] [address] Capo Rosario MD Bili,Total 0.3 mg/dL Normal 0.2-1.0 [facility] Comment on above: Order Comment: Is Pa tient Fasting? No Performed By: #### L 400.0076, L404.7150 #### Main [facility] ([facility]) [address] [place] [address] Capo Rosario MD Calcium [Mass/Vol] 8.60 mg/dL Low 8.8-10.5 [facility] Comment on above: Order Comment: Is Pa tient Fasting? No Performed By: #### L 400.0076, L404.7150 #### Main [facility] ([facility]) [address] [place] [address] Capo Rosario MD Chloride [Moles/Vol] 105 mmol/L Normal 101-111 [facility] Comment on above: Order Comment: Is Pa tient Fasting? No Performed By: #### L 400.0076, L404.7150 #### Main [facility] ([facility]) [address] [place] [address] Capo Rosario MD CO2 [Moles/Vol] 25 mmol/L Normal 21-32 [facility] Comment on above: Order Comment: Is Pa tient Fasting? No Performed By: #### L 400.0076, L404.7150 #### Main Laboratory ([facility]) [address] [place] [address] Capo Rosario MD Creatinine [Mass/Vol] 0.82 mg/dL Normal 0.60-1.30 [facility] Comment on above: Order Comment: Is Pa tient Fasting? No Performed By: #### L 400.0076, L404.7150 #### Main Laboratory ([facility]) [address] [place] [address] Capo Rosario MD GFR Calculation > 60 Normal [facility] Comment on above: Order Comment: Is Pa tient Fasting? No Result Comment: [employer] al[employer]za Kidney Disease stages by NKDF Stage eGFR I >90 II 60-89 III 30-59 IV 15-29 V <15 or dialysis AGE(years) AVERAGE GFR 40-49 99 ml/min/1.73 square meter Note:This result is normalized to 1.73 square meter body surface area. Height and weight are not factored. Performed By: #### L 400.0076, L404.7150 #### Main Laboratory ([facility]) [address] [place] [address] Capo Rosario MD Glucose [Mass/Vol] 58 mg/dL Low 70-110 [facility] Comment on above: Order Comment: Is Pa tient Fasting? No Result Comment: *Thi s reference range applies to fasting specimens only. Performed By: #### L 400.0076, L404.7150 #### Main [facility] ([facility]) [address] [place] [address] Capo Rosario MD Potassium [Moles/Vol] 4.0 mmol/L Normal 3.6-5.0 [facility] Comment on above: Order Comment: Is Pa tient Fasting? No Performed By: #### L 400.0076, L404.7150 #### Main Laboratory ([facility]) [address] [place] [address] Capo Rosario MD Protein [Mass/Vol] 7.9 g/dL Normal 6.2-8.0 [facility] Comment on above: Order Comment: Is Pa tient Fasting? No Performed By: #### L 400.0076, L404.7150 #### Main [facility] ([facility]) [address] [place] [address] Capo Rosario MD Sodium [Moles/Vol] 137 mmol/L Normal 135-145 [facility] Comment on above: Order Comment: Is Pa tient Fasting? No Performed By: #### L 400.0076, L404.7150 #### Main Laboratory ([facility]) [address] [place] [address] Capo Rosario MD Urea nitrogen [Mass/Vol] 8 mg/dL Normal 7-20 [facility] Comment on above: Order Comment: Is Pa tient Fasting? No Performed By: #### L 400.0076, L404.7150 #### Main [facility] ([facility]) [address] [place] [address] Capo Rosario MD Eosinophils/100 WBC Auto (Bl d)on 05-12-2021 Eosinophils/100 WBC (Bld) 5.1 % 0-6 [facility] Work Phone: [phone] Erythrocyte distribution wid th ratioon 05-12-2021 Erythrocyte distribution width (RBC) [Ratio] 16.2 % High 12.0-16.0 [facility] Work Phone: [phone] Lymphocytes/100 WBC Auto (Bl d)on 05-12-2021 Lymphocytes/100 WBC (Bld) 35.3 % 15-45 [facility] Work Phone: [phone] MCH Auto (RBC) [Entitic mass ]on 05-12-2021 MCH (RBC) [Entitic mass] 27.6 pg 27.5-33.0 [facility] Work Phone: [phone] MCHC Auto (RBC) [Mass/Vol]on 05-12-2021 MCHC (RBC) [Mass/Vol] 33.0 g/dL 33.0-36.0 [facility] Work Phone: [phone] MCV Auto (RBC) [Entitic vol] on 05-12-2021 MCV (RBC) [Entitic vol] 83.7 CU REMI 80-97 [facility] Work Phone: [phone] Monocytes Auto (Bld) [#/Vol] on 05-12-2021 Monocytes (Bld) [#/Vol] 600 /cmm 0-800 [facility] Work Phone: [phone] Monocytes/100 WBC Auto (Bld) on 05-12-2021 Monocytes/100 WBC (Bld) 10.0 % 2-10 [facility] Work Phone: [phone] Neutrophils Auto (Bld) [#/Vo l]on 05-12-2021 Neutrophils (Bld) [#/Vol] 3100 /cmm 0032-4388 [facility] Work Phone: [phone] Neutrophils/100 WBC Auto (Bl d)on 05-12-2021 Neutrophils/100 WBC (Bld) 48.6 % 40-70 [facility] Work Phone: [phone] Panel Informationon 05-12 Glomerular Filtration Rate Calc > 60 [facility] Work Phone: [phone] Comment on above: AGE(years) AVERAGE G FR 40-49 99 ml/min/1.73 square meterNote:This result is normalized to 1.73 square meter body surface area. Height and weight are not factored.Chronic Kidney Disease stages by NKDFStage eGFR I >90 II 60-89 III 30-59 IV 15-29 V <15 or dialysis Nucleated RBC Auto (Bld) [#/ Vol]on 05-12-2021 Nucleated RBC (Bld) [#/Vol] 0.1 /100 WBC <1 [facility] Work Phone: [phone] Platelets Auto (Bld) [#/Vol] on 05-12-2021 Platelets (Bld) [#/Vol] 281 th/cmm 150-400 [facility] Work Phone: [phone] RBC Auto (Bld) [#/Vol]on RBC (Bld) [#/Vol] 4.67 mil/cmm 4.00-5.10 [facility] Work Phone: [phone] Serum or plasma alanine pichardo otransferase measurement (enzymatic activity/volume)on 05-12-2021 ALT [Catalytic activity/Vol] 64 U/L High 10-40 [facility] Work Phone: [phone] Serum or plasma albumin/glob ulin mass ratioon 05-12-2021 Albumin/Globulin [Mass ratio] 1.0 {ratio} Low 1.5-2.5 [facility] Work Phone: Serum or plasma alkaline shira sphatase measurement (enzymatic activity/volume)on 05-12-2021 ALP [Catalytic activity/Vol] 83 U/L 39-118 [facility] Work Phone: Serum or plasma aspartate am inotransferase measurement (enzymatic activity/volume)on 05-12-2021 AST [Catalytic activity/Vol] 56 U/L High 15-41 [facility] Work Phone: Serum or plasma calcium mehdi urement (mass/volume)on 05-12-2021 Calcium [Mass/Vol] 8.60 mg/dL Low 8.8-10.5 [facility] Work Phone: Serum or plasma carbon dioxi de, total measurement (moles/volume)on 05-12-2021 CO2 [Moles/Vol] 25 mmol/L 21-32 [facility] Work Phone: Serum or plasma chloride bjorn surement (moles/volume)on 05-12-2021 Chloride [Moles/Vol] 105 mmol/L 101-111 [facility] Work Phone: Serum or plasma creatinine m easurement (mass/volume)on 05-12-2021 Creatinine [Mass/Vol] 0.82 mg/dL 0.60-1.30 [facility] Work Phone: Serum or plasma glucose mehdi urement (mass/volume)on 05-12-2021 Glucose [Mass/Vol] 58 mg/dL Low 70-110 [facility] Work Phone: Comment on above: *This reference rang e applies to fasting specimens only. Serum or plasma potassium me asurement (moles/volume)on 05-12-2021 Potassium [Moles/Vol] 4.0 mmol/L 3.6-5.0 [facility] Work Phone: Serum or plasma protein mehdi urement (mass/volume)on 05-12-2021 Protein [Mass/Vol] 7.9 g/dL 6.2-8.0 [facility] Work Phone: Serum or plasma sodium measu rement (moles/volume)on 05-12-2021 Sodium [Moles/Vol] 137 mmol/L 135-145 [facility] Work Phone: Serum or plasma total biliru bin measurement (mass/volume)on 05-12-2021 Bilirubin [Mass/Vol] 0.3 mg/dL 0.2-1.0 [facility] Work Phone: Serum or plasma urea nitroge n measurement (mass/volume)on 05-12-2021 Urea nitrogen [Mass/Vol] 8 mg/dL 7-20 [facility] Work Phone: TSH DL <= 0.005 mIU/L Qnon 0 05-12-2021 TSH Qn 1.199 m[IU]/L 0.490-4.670 [facility] Work Phone: TSH reflex Free T4on 022 TSH reflex Free T4 1.199 mcIU/mL Normal 0.490-4.670 [facility] [place] Comment on above: Order Comment: Is Erasto tient Fasting? No Performed By: #### L 400.0076, L404.7150 #### Main Laboratory ([facility]) [address] [place] [address] Capo Rosario MD WBC Auto (Bld) [#/Vol]on WBC (Bld) [#/Vol] 6.4 th/cmm 4.4-10.5 [facility] Work Phone: Neurosurgery Office/Clinic N oteon 06-29-2018 Neurosurgery Office/Clinic Note History of Present Illness The purpose of this visit is to review her symptoms and discuss surgery. Her back pain and right buttock/leg pain continues as previously described. NSAIDS are not really working for her. She wishes for a surgical fix. 06/25/2018 visit note: 48 year old female here in follow up on behalf of back with right leg pain. She has noted some numbness in the left great toe since her last visit. She completed MRI and is here for review. MRI lumbar 06/21/18- ddd, L45 moderate central disc protrusion with mild canal and NF stenosis 05/24/18 visit: 47 year old female here in further evaluation of back with right leg pain. She is status post left L45 discectomy per Dr. Ayala on 02/27/17, who was lost to her final follow up appointment. Today, she reports that she did well in her post operative course and remains pleased with her surgical outcome. She notes onset of right leg pain approximately 6-8 months ago. Back: across the low back Right leg: extending to just below the knee, coupled with paresthesia in the right great toe Left leg: symptom free she denies any loss of bowel or bladder, no saddle paresthesia Conservative efforts: heat, nsaids, mr, HEP [1] [1] Review of Systems General Weakness: Yes Cardiovascular EENMT Gastrointestinal Genitourinary Hematologic/Lymphatic Musculoskeletal Back pain: Yes Neurological Numbness: Yes Psychiatric Respiratory Skin Physical Exam Additional Vitals No qualifying data available. General: [Alert and oriented, well nourished, no acute distress]. Eye: [normal conjunctiva, no scleral icterus]. HENT: [normocephalic, atraumatic, oral mucosa pink and moist, dentition intact]. Pulmonary: [non-labored respiration] Cardiovascular: [no edema, strong pulses with rapid capillary refill] Skin: [Normal temperature, turgor, and texture; no rashes; no digit clubbing or cyanosis]. Psychiatric: [Appropriate judgement and insight, appropriate mood and affect]. NEURO EXAM: Pupils are equal No eye deviation Face is symmetric. Hearing is intact. tongue is midline. Motor: Lower Extremity Strength: 5/5 Reflexes: Reflexes of lower extremities are 2+ RLE, absent LLE. Arreola?s sign is negative. No clonus. Sensation: Grossly intact to light touch. Gait: Posture is normal. Gait is antalgic. Heel, toe intact. Musculoskeletal: Positive right SSLR. Negative hip exam bilaterally. Spine: no visible deformities or step offs; Lumbar spine: tenderness noted in the lumbar spine and paraspinal musculature. Pain is elicited with flexion and extension. [2] [2] Assessment/Plan Assessment: 1. low back with right leg pain and paresthesia 2. s/p left L45 discectomy 02/27/17 3. XR lumbar 05/24/18- ddd at L45 and L5S1 with no intersegmental instability 4. MRI lumbar 06/21/18- ddd, L45 moderate central disc protrusion with mild canal and NF stenosis 5. hx of MRSA 6. BMI 37 [3] Plan: I recommend L4-5 laminectomy fixation fusion and PLIF. Described risk included bleeding, infection, neurological injury, infection, blindness, csf leak, medical complication, adjacent disease, hardware failure, , continued pain, and need for further procedures or surgeries. I gave her a script for tramadol. She would like to proceed with surgery. Problem List/Past Medical History Ongoing Acid reflux Arthritis Back problem Burn Hepatitis Internal hemorrhoid Lumbar back pain with radiculopathy affecting left lower extremity Obesity Smoker ADRIAN (stress urinary incontinence, female) Historical No qualifying data Procedure/Surgical History Cholecystectomy Tonsillectomy (1978) Laparoscopy (05/26/1999) D & C (2001) BREAST REDUCTION (2003) CARPAL TUNNEL SURGERY (2007) Colonoscopy (2015) Discectomy Posterior Lumbar (Left) (02/27/2017) LOW BACK DISK SURGERY (02/27/2017) Medications ibuprofen 800 mg oral tablet, 800 mg, 1 tabs, Oral, TID tiZANidine 4 mg oral tablet, 4 mg, 1 tabs, Oral, HS (at bedtime), Still taking, not as prescribed: only takes as needed Allergies Latex (Itching, Rash) Social History Alcohol Current, 1-2 times per month Exercise Exercise frequency: Daily. Self assessment: Fair condition. Exercise type: Walking. Home/Environment Injuries/Abuse/Neglec t in household: No. Nutrition/Health Regular, Caffeine intake amount: 3 CUPS COFFEE DAILY. Sexual History of sexual abuse: No. Substance Abuse Denies All Tobacco 10 or more cigarettes (1/2 pack or more)/day in last 30 days Use:. Family History Patient was adopted Family history is negative Diagnostic Results MRI lumbar 06/21/18- ddd, L45 moderate central disc protrusion with mild canal and NF stenosis [4] [1] Neurosurgery Office Visit Note; Stephanie Major CNP 06/25/2018 09:32 EDT [2] Neurosurgery Office Visit Note; Stephanie Major CNP 06/25/2018 09:32 EDT [3] Neurosurgery Office Visit Note; Stephanie Major CNP 06/25/2018 09:32 EDT [4] Neurosurgery Office Visit Note; Stephanie Major CNP 06/25/2018 09:32 EDT Electronically signed by Bravo Ayala MD 07/02/18 10:47 EDT Electronically signed by Jojo Dorita M 06/29/2018 11:17 EDT Normal [facility] Neurosurgery Office/Clinic N [email or web address] 06-25-2018 Neurosurgery Office/Clinic Note Chief Complaint Patient present for a follow up on her back. History of Present Illness 48 year old female here in follow up on behalf of back with right leg pain. She has noted some numbness in the left great toe since her last visit. She completed MRI and is here for review. MRI lumbar 06/21/18- ddd, L45 moderate central disc protrusion with mild canal and NF stenosis 05/24/18 visit: 47 year old female here in further evaluation of back with right leg pain. She is status post left L45 discectomy per Dr. Ayala on 02/27/17, who was lost to her final follow up appointment. Today, she reports that she did well in her post operative course and remains pleased with her surgical outcome. She notes onset of right leg pain approximately 6-8 months ago. Back: across the low back Right leg: extending to just below the knee, coupled with paresthesia in the right great toe Left leg: symptom free she denies any loss of bowel or bladder, no saddle paresthesia Conservative efforts: heat, nsaids, mr, HEP [1] Review of Systems GASTROINTESTINAL: No fecal incontinence GENITOURINARY: No urinary incontinence MUSCULOSKELETAL: Positive for back and leg pain NEUROLOGIC: Positive for paresthesia Physical Exam Vitals & Measurements BP: 124/82 HT: 165.10 cm WT: 102 kg DOSE WT: 102 kg BMI: 37.42 General: [Alert and oriented, well nourished, no acute distress]. Eye: [normal conjunctiva, no scleral icterus]. HENT: [normocephalic, atraumatic, oral mucosa pink and moist, dentition intact]. Pulmonary: [non-labored respiration] Cardiovascular: [no edema, strong pulses with rapid capillary refill] Skin: [Normal temperature, turgor, and texture; no rashes; no digit clubbing or cyanosis]. Psychiatric: [Appropriate judgement and insight, appropriate mood and affect]. NEURO EXAM: Pupils are equal No eye deviation Face is symmetric. Hearing is intact. tongue is midline. Motor: Lower Extremity Strength: 5/5 Reflexes: Reflexes of lower extremities are 2+ RLE, absent LLE. Arreola?s sign is negative. No clonus. Sensation: Grossly intact to light touch. Gait: Posture is normal. Gait is antalgic. Heel, toe intact. Musculoskeletal: Positive right SSLR. Negative hip exam bilaterally. Spine: no visible deformities or step offs; Lumbar spine: tenderness noted in the lumbar spine and paraspinal musculature. Pain is elicited with flexion and extension. [2] Assessment/Plan Assessment: 1. low back with right leg pain and paresthesia 2. s/p left L45 discectomy 02/27/17 3. XR lumbar 05/24/18- ddd at L45 and L5S1 with no intersegmental instability 4. MRI lumbar 06/21/18- ddd, L45 moderate central disc protrusion with mild canal and NF stenosis 5. hx of MRSA 6. BMI 37 Plan: 1. f/u Dr. Ayala for review MRI results reviewed, all questions answered she will f/u with Dr. Ayala to further discuss [3] Problem List/Past Medical History Ongoing Acid reflux Arthritis Back problem Burn Hepatitis Internal hemorrhoid Lumbar back pain with radiculopathy affecting left lower extremity Obesity Smoker ADRIAN (stress urinary incontinence, female) Historical No qualifying data Procedure/Surgical History Cholecystectomy Tonsillectomy (1978) Laparoscopy (05/26/1999) D & C (2001) BREAST REDUCTION (2003) CARPAL TUNNEL SURGERY (2007) Colonoscopy (2015) Discectomy Posterior Lumbar (Left) (02/27/2017) LOW BACK DISK SURGERY (02/27/2017) Medications ibuprofen 800 mg oral tablet, 800 mg, 1 tabs, Oral, TID tiZANidine 4 mg oral tablet, 4 mg, 1 tabs, Oral, HS (at bedtime), Still taking, not as prescribed: only takes as needed Allergies Latex (Itching, Rash) Social History Alcohol Current, 1-2 times per month Exercise Exercise frequency: Daily. Self assessment: Fair condition. Exercise type: Walking. Home/Environment Injuries/Abuse/Neglec t in household: No. Nutrition/Health Regular, Caffeine intake amount: 3 CUPS COFFEE DAILY. Sexual History of sexual abuse: No. Substance Abuse Denies All Tobacco 10 or more cigarettes (1/2 pack or more)/day in last 30 days Use:. Family History Patient was adopted Family history is negative Diagnostic Results MRI lumbar 06/21/18- ddd, L45 moderate central disc protrusion with mild canal and NF stenosis [1] Neurosurgery Office Visit Note; Pedrito ALVARADO Stephanie Martinez 05/24/2018 13:31 EST [2] Neurosurgery Office Visit Note; Pedrito ALVARADO Stephanie Rodriguezy 05/24/2018 13:31 EST [3] Neurosurgery Office Visit Note; Pedrito ALVARADO Stephanie Martinez 05/24/2018 13:31 EST Electronically signed by Stephanie Major CNP 06/25/18 18:00 EDT Electronically signed by Karla Diaz 06/22/2018 09:34 EDT Normal [facility] XR Spine Lumbosacral 2/3 Vie ws w/Bendingon 05-25-2018 XR Spine Lumbosacral 2/3 Views w/Bending LUMBAR SPINE, 2-4 views: CLINICAL INFORMATION: Low back pain and leg pain. Discectomy February 2017 COMPARISON: 02/09/2017 and 02/27/2017 Findings: Vertebral bodies: Normal in heights. Mild multilevel spondylosis. Partial laminectomy defect on the left at L4. Alignment: Normal. No scoliosis or kyphosis. Lateral flexion and extension views show limited range of motion during flexion and extension with no signs of lumbar spinal instability. Disc spaces: Degenerative disc disease at L4-5 and L5-S1. Pedicles: Unremarkable. Facet joints: Normal. Soft tissues: Unremarkable. Other: Metallic clips in the right upper quadrant. CONCLUSIONS: 1. Degenerative disc disease at L4-5 and L5-S1. 2. Multilevel spondylosis. 3. Partial laminectomy defect at L4. 4. Limited range of motion during flexion and extension. 5. No signs of lumbar spinal instability. Final Dictated by: Henrique Fernando MD Dictated DT/TM: 05/25/2018 11:10 am Signed by: Henrique Fernando MD Signed (Electronic Signature): 05/25/2018 11:15 am (If Report Is Signed, Electronically Signed in Other Vendor System) Normal [facility] Neurosurgery Office/Clinic N trupti 05-24-2018 Neurosurgery Office/Clinic Note Chief Complaint PAtient present for back and right leg pain History of Present Illness 47 year old female here in further evaluation of back with right leg pain. She is status post left L45 discectomy per Dr. Ayala on 02/27/17, who was lost to her final follow up appointment. Today, she reports that she did well in her post operative course and remains pleased with her surgical outcome. She notes onset of right leg pain approximately 6-8 months ago. Back: across the low back Right leg: extending to just below the knee, coupled with paresthesia in the right great toe Left leg: symptom free she denies any loss of bowel or bladder, no saddle paresthesia Conservative efforts: heat, nsaids, mr, hep XR lumbar 05/24/18- ddd at L45 and L5S1 with no intersegmental instability Review of Systems GASTROINTESTINAL: No fecal incontinence GENITOURINARY: No urinary incontinence MUSCULOSKELETAL: Positive for back and leg pain NEUROLOGIC: Positive for paresthesia Physical Exam Vitals & Measurements BP: 108/76 HT: 165.10 cm WT: 99.2 kg DOSE WT: 99.2 kg BMI: 36.39 Additional Vitals Body Mass Index Measured: 36.39 kg/m2 BP Position/Location: Sitting, Left arm Peripheral Pulse Rate: 64 bpm General: [Alert and oriented, well nourished, no acute distress]. Eye: [normal conjunctiva, no scleral icterus]. HENT: [normocephalic, atraumatic, oral mucosa pink and moist, dentition intact]. Pulmonary: [non-labored respiration] Cardiovascular: [no edema, strong pulses with rapid capillary refill] Skin: [Normal temperature, turgor, and texture; no rashes; no digit clubbing or cyanosis]. Psychiatric: [Appropriate judgement and insight, appropriate mood and affect]. NEURO EXAM: Pupils are equal No eye deviation Face is symmetric. Hearing is intact. tongue is midline. Motor: Lower Extremity Strength: 5/5 Reflexes: Reflexes of lower extremities are 2+ RLE, absent LLE. Arreola?s sign is negative. No clonus. Sensation: Grossly intact to light touch. Gait: Posture is normal. Gait is antalgic. Heel, toe intact. Musculoskeletal: Positive right SSLR. Negative hip exam bilaterally. Spine: no visible deformities or step offs; Lumbar spine: tenderness noted in the lumbar spine and paraspinal musculature. Pain is elicited with flexion and extension. Assessment: 1. low back with right leg pain and paresthesia 2. s/p left L45 discectomy 02/27/17 3. XR lumbar 05/24/18- ddd at L45 and L5S1 with no intersegmental instability 4. hx of MRSA 5. BMI 36 Plan: 1. MRI lumbar 2. f/u on completion failed conservative measures to date recommend MRI with f/u on completion she additionally noted the presence of MRSA skin infection (on abdomen) treated since her last visit here Dr. Ayala Assessment/Plan 1. Right lumbar radiculopathy Ordered: MRI Spine Lumbar w/ + w/o Contrast 2. DDD (degenerative disc disease), lumbar Ordered: MRI Spine Lumbar w/ + w/o Contrast 3. Lumbago Ordered: MRI Spine Lumbar w/ + w/o Contrast Orders: XR Spine Lumbosacral 2/3 Views w/Bending Problem List/Past Medical History Ongoing Acid reflux Arthritis Back problem Burn Hepatitis Internal hemorrhoid Lumbar back pain with radiculopathy affecting left lower extremity Obesity Smoker ADRIAN (stress urinary incontinence, female) Historical No qualifying data Procedure/Surgical History Cholecystectomy Tonsillectomy (1978) Laparoscopy (05/26/1999) D & C (2001) BREAST REDUCTION (2003) CARPAL TUNNEL SURGERY (2007) Colonoscopy (2015) Discectomy Posterior Lumbar (Left) (02/27/2017) LOW BACK DISK SURGERY (02/27/2017) Medications ibuprofen 800 mg oral tablet, 800 mg, 1 tabs, Oral, TID tiZANidine 4 mg oral tablet, 4 mg, 1 tabs, Oral, HS (at bedtime), Still taking, not as prescribed: only takes as needed Allergies Latex (Itching, Rash) Social History Alcohol Current, 1-2 times per month Exercise Exercise frequency: Daily. Self assessment: Fair condition. Exercise type: Walking. Home/Environment Injuries/Abuse/Neglec t in household: No. Nutrition/Health Regular, Caffeine intake amount: 3 CUPS COFFEE DAILY. Sexual History of sexual abuse: No. Substance Abuse Denies All Tobacco 10 or more cigarettes (1/2 pack or more)/day in last 30 days Use:. Family History Patient was adopted Family history is negative Diagnostic Results XR lumbar 05/24/18- ddd at L45 and L5S1 with no intersegmental instability Electronically signed by Pedrito ALVARADO Stephanie Rodriguezy 05/24/18 13:39 EST Normal [facility] C Urineon 03-07-2018 C Urine Order added by Discern rule. ---- Final >100,000 cfu/ml Escherichia coli isolated ORGANISM EC ---- SUSCEPTIBILITY --- ORGANISM ID: 1 ANTIBIOTIC INTERPRETATION REMI STATUS POS Escherichia coli Amikacin S <=2 V Ampicillin S <=2 V Ampicillin/Sulbactam S <=2 V Cefazolin S <=4 V Ciprofloxacin S <=0.25 V Ceftriaxone S <=1 V Nitrofurantoin S <=16 V Cefepime S <=1 V Cefoxitin S <=4 V Gentamicin S <=1 V Meropenem S <=0.25 V Levofloxacin S <=0.12 V Tobramycin S <=1 V Piperacillin/Tazobact am S <=4 V Trimethoprim/Sulfa R [id number] V Ceftazidime S <=1 V Normal [facility] Comment on above: Performed By: #### U RC #### [facility] (DEFAULT) [address] [place] [address] [facility] [address] [place] [address] .UA Microscp 03-05-2018 RBC (U) [#/Vol] 1-4 Normal 0 - 5 [facility] Comment on above: Performed By: #### C [id number] #### [place] [address] UA Bacteria Moderate Abnormal Absent [facility] Comment on above: Performed By: #### C [id number] #### [place] [address] UA Renal Epi Qual 1-4 Normal 0 - 9 [facility] Comment on above: Performed By: #### C [id number] #### [place] [address] UA Squepi Cells Qual 1-4 Normal 0 - 29 [facility] Comment on above: Performed By: #### C [id number] #### [place] [address] UA WBC Qual 50+ /HPF Abnormal 0 - 5 [facility] Comment on above: Performed By: #### C [id number] #### [place] [address] ED Clinical Summaryon 2017 ED Clinical Summary [place] [id number] ED Clinical Summary Person Information Name: Sandy Huizar Chio/Emeka Age: 47 Years : 1970 Sex: Female PCP: Derek Hermosillo DO Marital Status: Phone: Race: White Ethnicity: Not or Language: Liberian Visit Reason: Back pain; Back or neck pain Acuity: 3 Enc Type: Emergency Med Service: Emergency Medicine Arrival: 03/05/2018 13:28:00 Discharge: 03/05/2018 14:41:00 LOS: 000 01:13 Checkin: 03/05/2018 13:28:00 Checkout: 03/05/2018 14:41:00 Dispo Type: Home or Self Care Address: [address] [place] [address] Provider Notes: Diagnosis: 1:Urinary tract infection Problems No Problems Documented Smoking Status: Functional Status: Sensory Deficits: History of Falls: Mobility Assistance Prior to Admission: ADLs: Current Level of Assistance for Self-Care/Mobility: Cognitive Status: Allergies Latex (Rash) (Itching) Laboratory or Other Results This Visit (last charted value for your 03/05/2018 visit) Urinalysis 03/05/2018 1:45 PM UA Color: Yellow UA Urobilinogen: 0.2 mg/dL UA Bili: Negative UA Ketones: Negative mg/dL UA Leukocyte Esterase: Large UA Nitrite: Negative UA Glucose: Negative mg/dL UA Bacteria: Moderate /HPF UA Protein: Trace mg/dL UA Blood: Moderate UA Spec Grav: 1.005 -- Normal range between ( 1.003 and 1.035 ) UA pH: 6.0 UA Clarity: Hazy UA Source: Clean Catch UA WBC Qual: 50+ /HPF UA RBC Qual: 1-4 /HPF UA Renal Epi Qual: 1-4 /HPF UA Squepi Cells Qual: 1-4 /HPF Chemistry 03/05/2018 1:45 PM Urine Preg: Negative Measurements: Height: Weight: 96 kg Blood Pressure: /85 mmHg BMI: Procedures No Procedures Documented Immunizations No Immunizations Documented This Visit Final Med List: New Medications [facility] [facility], [address] [place], [place] [id number], [phone] naproxen (naproxen 500 mg oral tablet) 1 Tabs Oral (given by mouth) 2 times a day as needed pain for 10 Days. Refills: 0. Last Dose: ____ sulfamethoxazole-trim ethoprim (Bactrim DS 800 mg-160 mg oral tablet) 1 Tabs Oral (given by mouth) 2 times a day for 7 Days. Refills: 0. Last Dose: ____ Medications that have not changed Other Medications ibuprofen (ibuprofen 800 mg oral tablet) 1 Tabs Oral (given by mouth) 3 times a day. Last Dose: ____ tiZANidine (tiZANidine 4 mg oral tablet) 1 Tabs Oral (given by mouth) once a day (at bedtime). Last Dose: ____ No Longer Take the Following Medications FLUoxetine (PROzac 40 mg oral capsule) 1 Capsules Oral (given by mouth) every day. Stop Taking Reason: Patient Discharged [facility] [facility], [address] [place], [place] [id number], [phone] naproxen (naproxen 500 mg oral tablet) 1 Tabs Oral (given by mouth) 2 times a day as needed pain for 10 Days. Refills: 0. sulfamethoxazole-trim ethoprim (Bactrim DS 800 mg-160 mg oral tablet) 1 Tabs Oral (given by mouth) 2 times a day for 7 Days. Refills: 0. Other Medications ibuprofen (ibuprofen 800 mg oral tablet) 1 Tabs Oral (given by mouth) 3 times a day. tiZANidine (tiZANidine 4 mg oral tablet) 1 Tabs Oral (given by mouth) once a day (at bedtime). Care Team Members: Attending Physician: Lizbeth Collins DO Consulting Physician: Referring Physician: Provider Role Assigned Unassigned Lizbeth Collins DO ED Provider 03/05/2018 13:32:45 Flora Griffith ED Nurse 03/05/2018 14:02:04 Follow up: With: Address: When: [facility] [place] [phone] Business (1) Within 2 to 4 days Patient Education Information: BLADDER INFECTION, Female (Adult) [facility] Poison Help line: . [facility] Hotline: [place] Tobacco Quit Line: [facility] ([place], [place]) [address]: [phone] [facility] ([place], [place]) [address]: [phone] [facility] [address] [facility]. [place], [place]: [phone] Normal [facility] ED Note-Physicianon 03-05-20 ED Note-Physician Chief Complaint dysuria History of Present Illness Patient presents with complaints of dysuria and urinary hesitancy x 2 days. She notes mild aching bilateral flank pain today which is worse on the R. No acute midline back pain. No fever or injury. No anterior abdominal pain. She notes a thick vaginal discharge recently, but refuses pelvic exam today. She notes having one sexual partner and denies concern for STD exposure. She denies having other complaints. No vomiting or fever. Review of Systems GENERAL: Negative for fever, chills EYES: Negative for acute changes NECK: Negative for pain CARDIOVASCULAR: Negative for chest pain RESPIRATORY: Negative for shortness of breath, cough ABDOMEN/GI: Negative for abdominal pain, nausea, vomiting, diarrhea BACK: + for flank pain MUSCULOSKELETAL: Negative for acute pain and swelling SKIN: Negative for rash, discoloration NEURO: Negative for headache, focal weakness, acute numbness, acute tingling Physical Exam CONSTITUTIONAL: Patient is awake and alert HEAD: Normocephalic, atraumatic HEENT: Moist mucus membranes, oropharynx clear EYES: Pupils are equally round and reactive to light, extraocular movements intact without nystagmus, lids and lashes normal, clear conjunctiva, non-icteric sclera. No drainage NECK: Trachea midline, external neck normal, supple, no nuchal rigidity or meningismus PULMONARY: Clear to auscultation bilaterally with equal sounds. Normal rate and effort CARDIOVASCULAR: Regular rate and rhythm. GASTROINTESTINAL: Soft, non-tender, normal bowel sounds, no rebound or guarding BACK: + mild bilateral flank tenderness, normal ROM SKIN: Warm and dry, no rash or lesions, no evidence of cellulitis. No petechiae MUSCULOSKELETAL: Extremities without acute deformity. No edema or tenderness. No midline C/T/L spine tenderness. Normal distal pulses and cap refill. NEUROLOGIC: No gross motor or sensory deficits. Normal tone. Normal coordination. Normal DTRs. PSYCHIATRIC: Normal mood and affect Vitals & Measurements T: 36.6 ?C (Temporal Artery) RR: 18 BP: 125/85 SpO2: 96% DOSE WT: 96 kg Additional Vitals Peripheral Pulse Rate: 87 bpm Procedure No qualifying data available. ASA Documentation Medical Decision Making I have reviewed the nurse's notes and vital signs. The patient has presented with dysuria and flank pain. She has been able to void urine in the ED without difficulty. Medications given in the ED: Toradol, Bactrim Testing performed in the ED: UA, HCG Improved in the ED. Appears well, NAD. ED return precautions reviewed and follow up plan discussed. Specifically, I have advised that she return to the ED immediately for worsened symptoms, difficulty urinating, fever, vomiting, or worsened pain. Rx provided: Bactrim, Naproxen Disposition: discharge I have advised follow up with her PCP. Assessment/Plan 1. Urinary tract infection Orders: naproxen, 1 tabs, Oral, BID, PRN, X 10 days, # 20 tabs, 0 Refill(s), 03/15/18 14:12:00 EST, Pharmacy: [facility] sulfamethoxazole-trim ethoprim, 1 tabs, Oral, BID, X 7 days, # 14 tabs, 0 Refill(s), 03/12/18 14:15:00 EST, Pharmacy: [facility] Culture Urine Discharge Patient Problem List/Past Medical History Ongoing Acid reflux Arthritis Back problem Burn Hepatitis Internal hemorrhoid Lumbar back pain with radiculopathy affecting left lower extremity Obesity Smoker ADRIAN (stress urinary incontinence, female) Historical No qualifying data Procedure/Surgical History Discectomy Posterior Lumbar (Left) (02/27/2017), LOW BACK DISK SURGERY (02/27/2017), Colonoscopy (2015), CARPAL TUNNEL SURGERY (2007), BREAST REDUCTION (2003), D & C (2001), Laparoscopy (05/26/1999), Tonsillectomy (1978), Cholecystectomy. Medications Home ibuprofen 800 mg oral tablet, 800 mg, 1 tabs, Oral, TID tiZANidine 4 mg oral tablet, 4 mg, 1 tabs, Oral, HS (at bedtime), Still taking, not as prescribed: only takes as needed Inpatient No active inpatient medications Prescriptions Bactrim DS 800 mg-160 mg oral tablet, 1 tabs, Oral, BID naproxen 500 mg oral tablet, 500 mg, 1 tabs, Oral, BID, PRN Allergies Latex (Itching, Rash) Social History Alcohol Current, 1-2 times per month Exercise Exercise frequency: Daily. Self assessment: Fair condition. Exercise type: Walking. Home/Environment Injuries/Abuse/Neglec t in household: No. Nutrition/Health Regular, Caffeine intake amount: 3 CUPS COFFEE DAILY. Sexual History of sexual abuse: No. Substance Abuse Denies All Tobacco 10 or more cigarettes (1/2 pack or more)/day in last 30 days Use:. Family History Patient was adopted Lab Results Testing LATEST RESULTS HISTORICAL RESULTS Urine Preg 03/05/18 13:45 Negative 02/27/17 Negative UA Macroscopic LATEST RESULTS HISTORICAL RESULTS UA Source 03/05/18 13:45 Clean Catch 02/20/17 Clean Catch UA Color 03/05/18 13:45 Yellow 02/20/17 Colorless UA Clarity 03/05/18 13:45 Hazy 02/20/17 Clear UA Spec Grav 03/05/18 13:45 1.005 01/10/18 1.005 UA pH 03/05/18 13:45 6.0 01/10/18 5.5 UA Protein 03/05/18 13:45 Trace 02/20/17 Negative UA Glucose 03/05/18 13:45 Negative 02/20/17 Negative UA Bili 03/05/18 13:45 Negative 02/20/17 Negative UA Urobilinogen 03/05/18 13:45 0.2 02/20/17 0.2 UA Leukocyte Esterase 03/05/18 13:45 Large Abnormal 02/20/17 Negative UA Nitrite 03/05/18 13:45 Negative 02/20/17 Negative UA Ketones 03/05/18 13:45 Negative 02/20/17 Negative UA Blood 03/05/18 13:45 Moderate Abnormal 02/20/17 Negative UA Microscopic LATEST RESULTS UA RBC Qual 03/05/18 13:45 1-4 UA WBC Qual 03/05/18 13:45 50+ Abnormal UA Bacteria 03/05/18 13:45 Moderate Abnormal UA Squepi Cells Qual 03/05/18 13:45 1-4 UA Renal Epi Qual 03/05/18 13:45 1-4 Diagnostic Results XRay No qualifying data available. Computerized Tomagraphy No qualifying data available. Ultrasound No qualifying data available. Magnetic Resonance Imaging No qualifying data available. Electronically signed by Dennis TYLER Lizbeth Kotharie 03/05/18 17:29 EST Normal [facility] UA w Culture if Ind Emily Color (U) Yellow Normal [facility] Comment on above: Performed By: #### U CIM #### [place] [address] Glucose (U) [Mass/Vol] Negative Normal Negative [facility] Comment on above: Performed By: #### U CIM #### [place] [address] Ketones Ql (U) Negative Normal Negative [facility] Comment on above: Performed By: #### U CIM #### [place] [address] UA Blood Moderate Abnormal Negative [facility] Comment on above: Performed By: #### U CIM #### [place] [address] UA Clarity Hazy Normal [facility] Comment on above: Performed By: #### U CIM #### [place] [address] UA Leukocyte Esterase Large Abnormal Negative [facility] Comment on above: Performed By: #### U CIM #### [place] [address] UA Nitrite Negative Normal Negative [facility] Comment on above: Performed By: #### U CIM #### [place] [address] UA pH 6.0 Normal 4.5 - 7.8 [facility] Comment on above: Performed By: #### U CIM #### [place] [address] UA Protein Trace Normal Negative [facility] Comment on above: Performed By: #### U CIM #### [place] [address] UA Source Clean Catch Normal [facility] Comment on above: Performed By: #### U CIM #### [place] [address] UA Spec Grav 1.005 Normal 1.003-1.035 [facility] Comment on above: Performed By: #### U CIM #### [place] [address] UA Urobilinogen 0.2 mg/dL Normal 0.2 - 1.0 [facility] Comment on above: Performed By: #### U CIM #### [place] [address] Urobilinogen Qn (U) Negative Normal [facility] Comment on above: Performed By: #### U CIM #### [place] [address] ED Clinical Summaryon 2017 ED Clinical Summary [place] [id number] ED Clinical Summary Person Information Name: Sandy Hu[facility] Age: 47 Years : 1970 Sex: Female PCP: Marital Status: Race: White Ethnicity: Not or Language: Liberian Visit Reason: Abscess - axilla; Wound infection Acuity: 3 Enc Type: Emergency Med Service: Emergency Medicine Arrival: 01/10/2018 12:56:00 Discharge: 01/10/2018 13:37:00 LOS: 000 00:41 Checkin: 01/10/2018 12:56:00 Checkout: 01/10/2018 13:37:00 Dispo Type: Home or Self Care Address: [address] [place] [address] Provider Notes: History of Present Illness Patient is a 47-year-old female presents today for a recheck of a right axillary abscess. She was seen here on January 04?and started on clindamycin at that time. She states that she had 6 small?subcutaneous abscesses in her right axillary area at that time.?All but 2 of whom have resolved in the to the remain are significantly smaller than they were 5 days ago as per her history.?She has not had a fever.?She states that she has been compliant in taking her antibiotics so far.? She states that while she is here she would like to have a urine drug screen?ran?as she recently? Peed positive for benzos and she wants to know?her urine is now clean.? She has no other concern or complaint today. Review of Systems As reviewed in the HPI. All other systems reviewed are negative or normal. ? Physical Exam Constitutional: No acute distress, nontoxic in appearance Head: Normocephalic/atrauma tic Eyes: Conjunctiva white, mucous membranes moist ENT: Ears are externally normal, nares patent, pharynx is benign appearance Neck: Supple without adenopathy Cardiovascular:?Regul ar without appreciable murmur Respiratory: Lungs clear to auscultation?bilatera lly Abdomen: Soft, nontender Skin:?Normal aside from right axilla. The right axillary area there are?2 small subcutaneous abscesses without localized cellulitis.?Neither of which require incision and drainage at this time. Neurological: No focal deficits Psychiatric: Affect and behavior appropriate ? Diagnosis: 1:Axillary abscess Problems No Problems Documented Smoking Status: Functional Status: Sensory Deficits: History of Falls: Mobility Assistance Prior to Admission: ADLs: Current Level of Assistance for Self-Care/Mobility: Cognitive Status: Allergies Latex (Rash) (Itching) Laboratory or Other Results This Visit (last charted value for your 01/10/2018 visit) Urinalysis 01/10/2018 1:17 PM UA Spec Grav: 1.005 -- Normal range between ( 1.003 and 1.035 ) UA pH: 5.5 Measurements: Height: Weight: 101.0 kg Blood Pressure: /90 mmHg BMI: Procedures No Procedures Documented Immunizations No Immunizations Documented This Visit Final Med List: Medications that have not changed Other Medications clindamycin (clindamycin 300 mg oral capsule) 1 Capsules Oral (given by mouth) every 6 hours for 14 Days. Refills: 0. Last Dose: ____ FLUoxetine (PROzac 40 mg oral capsule) 1 Capsules Oral (given by mouth) every day. Last Dose: ____ tiZANidine (tiZANidine 4 mg oral tablet) 1 Tabs Oral (given by mouth) once a day (at bedtime). Last Dose: ____ Other Medications clindamycin (clindamycin 300 mg oral capsule) 1 Capsules Oral (given by mouth) every 6 hours for 14 Days. Refills: 0. FLUoxetine (PROzac 40 mg oral capsule) 1 Capsules Oral (given by mouth) every day. tiZANidine (tiZANidine 4 mg oral tablet) 1 Tabs Oral (given by mouth) once a day (at bedtime). Care Team Members: Attending Physician: Pj Lindsey DO Consulting Physician: Referring Physician: Provider Role Assigned Unassigned Andre Sneed ED Nurse 01/10/2018 12:57:23 Pj Lindsey DO ED Provider 01/10/2018 13:01:41 Follow up: With: Address: When: Return here if worse With: Address: When: Your doctor Within 1 to 2 days Patient Education Information: ABSCESS, Abx Only [facility] Poison Help line: . [facility] Hotline: [place] Tobacco Quit Line: [place], [place]) [address]: [phone] [place], [place]) [address]: [phone] [facility] [address] [facility]. [place], [place]: [phone] [facility] ED Note-Physicianon 01-11-20 ED Note-Physician Chief Complaint Patient here for follow up on cysts in right arm. States was here 5 days ago and told to return. History of Present Illness Patient is a 47-year-old female presents today for a recheck of a right axillary abscess. She was seen here on January 04 and started on clindamycin at that time. She states that she had 6 small subcutaneous abscesses in her right axillary area at that time. All but 2 of whom have resolved in the to the remain are significantly smaller than they were 5 days ago as per her history. She has not had a fever. She states that she has been compliant in taking her antibiotics so far. She states that while she is here she would like to have a urine drug screen ran as she recently Peed positive for benzos and she wants to know her urine is now clean. She has no other concern or complaint today. Review of Systems As reviewed in the HPI. All other systems reviewed are negative or normal. Physical Exam Constitutional: No acute distress, nontoxic in appearance Head: Normocephalic/atrauma tic Eyes: Conjunctiva white, mucous membranes moist ENT: Ears are externally normal, nares patent, pharynx is benign appearance Neck: Supple without adenopathy Cardiovascular: Regular without appreciable murmur Respiratory: Lungs clear to auscultation bilaterally Abdomen: Soft, nontender Skin: Normal aside from right axilla. The right axillary area there are 2 small subcutaneous abscesses without localized cellulitis. Neither of which require incision and drainage at this time. Neurological: No focal deficits Psychiatric: Affect and behavior appropriate Vitals & Measurements T: 36.8 ?C (Oral) RR: 16 BP: 153/90 SpO2: 100% HT: 165.1 cm DOSE WT: 101.0 kg Additional Vitals Peripheral Pulse Rate: 105 bpm High Procedure No qualifying data available. ASA Documentation Medical Decision Making Patient seen and evaluated. It appears that she is responding well to clindamycin which she has been taking for last 5 days. She was given a 14 day supply when she was here. I recommended that she continue her antibiotics as prescribed. She is a patient of Dr. Ornelas and I recommended that she follow-up with him for reevaluation in the next 1-2 days returning here should symptoms worsen or new symptoms develop in the interim. Her urine was sent for a drug screen at her request. She agrees fully with the treatment plan and follow-up as outlined above and is discharged in stable condition. Assessment/Plan 1. Axillary abscess Orders: ketorolac, 60 mg, IM, Injection, Once, First Dose: 01/10/18 13:16:00 EDT, Stop Date: 01/10/18 13:16:00 EDT, Dispense From Location: [facility] [address] [facility] Professional Level 2 Drug Screen Comprehensive, Urine Problem List/Past Medical History Ongoing Acid reflux Arthritis Back problem Burn Hepatitis Internal hemorrhoid Lumbar back pain with radiculopathy affecting left lower extremity Obesity Smoker ADRIAN (stress urinary incontinence, female) Historical No qualifying data Procedure/Surgical History Discectomy Posterior Lumbar (Left) (02/27/2017), LOW BACK DISK SURGERY (02/27/2017), Colonoscopy (2015), CARPAL TUNNEL SURGERY (2007), BREAST REDUCTION (2003), D & C (2001), Laparoscopy (05/26/1999), Tonsillectomy (1978), Cholecystectomy. Medications Home PROzac 40 mg oral capsule, 40 mg, 1 caps, Oral, Daily tiZANidine 4 mg oral tablet, 4 mg, 1 tabs, Oral, HS (at bedtime) Inpatient Toradol, 60 mg, 2 mL, IM, Once Prescriptions clindamycin 300 mg oral capsule, 300 mg, 1 caps, Oral, q6hr Allergies Latex (Itching, Rash) Social History Alcohol Current, Wine, 1-2 times per month Exercise Exercise frequency: Daily. Self assessment: Fair condition. Exercise type: Walking. Home/Environment Injuries/Abuse/Neglec t in household: No. Nutrition/Health Regular, Caffeine intake amount: 3 CUPS COFFEE DAILY. Sexual History of sexual abuse: No. Substance Abuse Denies All Tobacco 10 or more cigarettes (1/2 pack or more)/day in last 30 days Use:. 10 or more cigarettes (1/2 pack or more)/day in last 30 days Use:. Current every day smoker, Cigarettes, 1 per day. Packs, 10 year(s). Family History Patient was adopted Diagnostic Results XRay No qualifying data available. Computerized Tomagraphy No qualifying data available. Ultrasound No qualifying data available. Magnetic Resonance Imaging No qualifying data available. Electronically signed by Het Pj TYLER 01/10/18 13:22 EDT Normal [facility] UDS Compon 01-10-2018 Creatinine [Mass/Vol] 32.5 mg/dL Normal [facility] Comment on above: Performed By: #### C [id number] #### [place] [address] Ur Amph Scrn Negative Normal NEG = <1000 [facility] Comment on above: Performed By: #### C [id number] #### [place] [address] Ur Nohelia Scrn Negative Normal NEG = <200 [facility] Comment on above: Performed By: #### C [id number] #### [place] [address] Ur Benzodia Scrn Negative Normal NEG = <200 [facility] Comment on above: Performed By: #### C [id number] #### [place] [address] Ur Cannab Scrn Negative Normal NEG = <50 [facility] Comment on above: Performed By: #### C [id number] #### [place] [address] Ur Cocaine Scrn Negative Normal NEG = <300 [facility] Comment on above: Performed By: #### C [id number] #### [place] [address] Ur Methadone Scn Negative Normal NEG = <300 [facility] Comment on above: Performed By: #### C [id number] #### [place] [address] Ur Opiate Scrn Negative Normal NEG = <300 [facility] Comment on above: Performed By: #### C [id number] #### [place] [address] Ur Oxy Screen Negative Normal NEG = <100 [facility] Comment on above: Performed By: #### C [id number] #### [place] [address] Ur Oxy Scrn Qnt 3 ng/mL Normal <=99 [facility] Comment on above: Performed By: #### C [id number] #### [place] [address] Ur PCP Scrn Negative Normal NEG = <25 [facility] Comment on above: Performed By: #### C [id number] #### [place] [address] UA pH 5.5 Normal 4.5 - 7.8 [facility] Comment on above: Performed By: #### C [id number] #### [place] [address] UA Spec Grav 1.005 Normal 1.003-1.035 [facility] Comment on above: Performed By: #### C [id number] #### [place] [address] ED Clinical Summaryon 2017 ED Clinical Summary [place] [address] ED Clinical Summary Person Information Name: Sandy Huizar [facility] Age: 47 Years : 1970 Sex: Female PCP: Marital Status: Race: White Ethnicity: Not or Language: Liberian Visit Reason: Abscess - axilla; Medical problem Acuity: 3 Enc Type: Emergency Med Service: Emergency Medicine Arrival: 01/04/2018 18:00:00 Discharge: 01/04/2018 20:22:00 LOS: 000 02:22 Checkin: 01/04/2018 18:00:00 Checkout: 01/04/2018 20:22:00 Dispo Type: Home or Self Care [address] [address] Provider Notes: Diagnosis: 1:Abscess of multiple sites of upper arm Problems No Problems Documented Smoking Status: Functional Status: Sensory Deficits: History of Falls: Mobility Assistance Prior to Admission: ADLs: Current Level of Assistance for Self-Care/Mobility: Cognitive Status: Allergies Latex (Rash) (Itching) Laboratory or Other Results This Visit (last charted value for your 01/04/2018 visit) No Laboratory or Other Results This Visit Measurements: Height: Weight: 100 kg Blood Pressure: /88 mmHg BMI: Procedures No Procedures Documented Immunizations No Immunizations Documented This Visit Final Med List: New Medications [facility], [address] [place], [place] [id number], [phone] clindamycin (clindamycin 300 mg oral capsule) 1 Capsules Oral (given by mouth) every 6 hours for 14 Days. Refills: 0. Last Dose: ____ Medications that have not changed Other Medications FLUoxetine (PROzac 40 mg oral capsule) 1 Capsules Oral (given by mouth) every day. Last Dose: ____ tiZANidine (tiZANidine 4 mg oral tablet) 1 Tabs Oral (given by mouth) once a day (at bedtime). Last Dose: ____ No Longer Take the Following Medications gabapentin (gabapentin 300 mg oral capsule) 2 Capsules Oral (given by mouth) 3 times a day. Refills: 2. Stop Taking Reason: Physician Request omeprazole (omeprazole 40 mg oral delayed release capsule) 1 Capsules Oral (given by mouth) every day as needed heartburn. Stop Taking Reason: Physician Request traMADol (traMADol 50 mg oral tablet) 1 Tabs Oral (given by mouth) every 6 hours as needed as needed for pain. Refills: 0. Stop Taking Reason: Physician Request traZODone (traZODone 100 mg oral tablet) 1 Tabs Oral (given by mouth) once a day (at bedtime) as needed insomnia. Stop Taking Reason: Physician Request [facility] [facility], [address] [place], [place] [id number], [phone] clindamycin (clindamycin 300 mg oral capsule) 1 Capsules Oral (given by mouth) every 6 hours for 14 Days. Refills: 0. Other Medications FLUoxetine (PROzac 40 mg oral capsule) 1 Capsules Oral (given by mouth) every day. tiZANidine (tiZANidine 4 mg oral tablet) 1 Tabs Oral (given by mouth) once a day (at bedtime). Care Team Members: Attending Physician: Claudy Clayton MD Consulting Physician: Referring Physician: Provider Role Assigned Unassigned Tamika Sneedew ED Nurse 01/04/2018 18:01:45 Claudy Clayton MD ED Provider 01/04/2018 18:14:22 Anaya Frank ED Nurse 01/04/2018 19:12:35 Follow up: With: Address: When: Follow-up with her primary care provider in 2-4 days as needed. Patient Education Information: ABSCESS, Abx Only [facility] Poison Help line: . [facility] Hotline: [place] Tobacco Quit Line: [place], [place]) [address]: [phone] [place], [place]) [address]: [phone] [facility] [address] [place], [place]: [phone] Normal [facility] ED Note-Physicianon 01-05-20 ED Note-Physician Chief Complaint Had a cyst in groin and had MRSA and surgery now has 6 abscess in right armpit. History of Present Illness This is a 47 years old lady who presented to the ER stating that she is having multiple abscesses in her right armpit. The patient stated that this has been going on for the last 6 days and it's getting worse. The patient stated that she squeezed the biggest abscess and a pus came out of it. The patient has not been seen by another provider for this problem. The patient has a history of MRSA and infection with abscesses. Last time the patient was have a big abscess was treated in [facility] in October 31 when she had a surgery and was admitted for 3 days. Review of Systems Constitutional: No Fever. Cardiovascular: No Chest Pain or Palpitations. Respiratory: No Shortness of Breath, Cough or Wheeze. GI: No Vomiting, No Diarrhea, No Abdominal Pain. All other systems reviewed and are negative. Physical Exam CONSTITUTIONAL: Well appearing in moderate discomfort. SKIN: Warm, dry, and intact without rash, except for the right arm bit with the patient has multiple small abscesses that are firm, but not them has signs of pus bag. EYES: Extraocular movements are grossly intact, clear conjunctiva, pupils equal round reactive to light. HENT: Normocephalic, atraumatic, moist mucus membranes. NECK: No obvious swelling, normal range of motion, no adenopathy. PULMONARY: Breathing comfortably. CARDIOVASCULAR: Normal heart rate. NEUROLOGIC: Alert, awake, and oriented ?3, normal speech, moves all extremities with normal strength, normal coordination and balance. MUSCULOSKELETAL: No gross deformities, atraumatic. PSYCHIATRIC: Normal mood and affect. Vitals & Measurements T: 37 ?C (Oral) RR: 20 BP: 137/88 SpO2: 96% HT: 165 cm DOSE WT: 100 kg Additional Vitals Peripheral Pulse Rate: 84 bpm Procedure No qualifying data available. ASA Documentation Medical Decision Making Vital signs were reviewed. Nurse's notes were reviewed and I agree with what was documented. The patient was seen and examined by myself at the bedside. The patient was told about the options of Kayleigh the abscesses or taken antibiotic and the final decision was made that she will take the antibiotics. The patient was given Dilaudid 1 mg IM for pain. The patient then was given prescription for clindamycin and was discharged to follow-up with her primary care provider or surgeon if the abscesses are not gone. The patient was given instructions for abscesses that were treated with antibiotic only. Assessment/Plan 1. Abscess of multiple sites of upper arm Orders: clindamycin, 1 caps, Oral, q6hr, X 14 days, # 56 caps, 0 Refill(s), 01/18/18 20:07:00 EDT, Pharmacy: [facility] [employer] [address] - ED Professional Level 3 Discharge Patient Problem List/Past Medical History Ongoing Acid reflux Arthritis Back problem Burn Hepatitis Internal hemorrhoid Lumbar back pain with radiculopathy affecting left lower extremity Obesity Smoker ADRIAN (stress urinary incontinence, female) Historical No qualifying data Procedure/Surgical History Discectomy Posterior Lumbar (Left) (02/27/2017), LOW BACK DISK SURGERY (02/27/2017), Colonoscopy (2015), CARPAL TUNNEL SURGERY (2007), BREAST REDUCTION (2003), D & C (2001), Laparoscopy (05/26/1999), Tonsillectomy (1978), Cholecystectomy. Medications Home PROzac 40 mg oral capsule, 40 mg, 1 caps, Oral, Daily tiZANidine 4 mg oral tablet, 4 mg, 1 tabs, Oral, HS (at bedtime) Inpatient No active inpatient medications Prescriptions clindamycin 300 mg oral capsule, 300 mg, 1 caps, Oral, q6hr Allergies Latex (Itching, Rash) Social History Alcohol Current, Wine, 1-2 times per month Exercise Exercise frequency: Daily. Self assessment: Fair condition. Exercise type: Walking. Home/Environment Injuries/Abuse/Neglec t in household: No. Nutrition/Health Regular, Caffeine intake amount: 3 CUPS COFFEE DAILY. Sexual History of sexual abuse: No. Substance Abuse Denies All Tobacco 10 or more cigarettes (1/2 pack or more)/day in last 30 days Use:. Current every day smoker, Cigarettes, 1 per day. Packs, 10 year(s). Family History Patient was adopted Diagnostic Results XRay No qualifying data available. Computerized Tomagraphy No qualifying data available. Ultrasound No qualifying data available. Magnetic Resonance Imaging No qualifying data available. Electronically signed by Claudy Clayton MD 01/05/18 02:37 EDT Normal [facility] Otheron 04-21-2017 Current Invalid Interpretation Code [employer] [facility] Work Phone: gb Invalid Interpretation Code [employer] [facility] Work Phone: 7 Invalid Interpretation Code [employer] [facility] Work Phone: 0= N/A Invalid Interpretation Code [employer] [facility] Work Phone: Risk Level 2= 4-6 Invalid Interpretation Code [employer] [facility] Work Phone: 4 Invalid Interpretation Code [employer] [facility] Work Phone: 0=No Invalid Interpretation Code [employer] [facility] Work Phone: Needs Completed Invalid Interpretation Code [facility] Work Phone: 3=Yes Invalid Interpretation Code [facility] Work Phone: 0-N/A Invalid Interpretation Code [facility] Work Phone: 1=Yes Invalid Interpretation Code [facility] Work Phone: Metabolic Panelon 01-16-2017 Creatinine mass conc Out Of Range Invalid Interpretation Code [facility] Work Phone: [phone] Otheron 01-16-2017 Negative Invalid Interpretation Code 5 [facility] Work Phone: Positive Invalid Interpretation Code [facility] Work Phone: abnormal Invalid Interpretation Code [facility] Work Phone: [employer], [employer] Invalid Interpretation Code [facility] Work Phone: Current Invalid Interpretation Code [facility] Work Phone: 7 Invalid Interpretation Code [facility] Work Phone: 20.0 Count Invalid Interpretation Code [facility] Work Phone: No Invalid Interpretation Code [facility] Work Phone: Pre-contemplation Invalid Interpretation Code [facility] Work Phone: pt does not want to at this time Invalid Interpretation Code [facility] Work Phone: 6-Monoacetylmorphine (6-TYRONE) Confirm mass conc (U) Negative Invalid Interpretation Code 5 [facility] Work Phone: Alpha hydroxyalprazolam mass conc Negative Invalid Interpretation Code 5 [facility] Work Phone: Alprazolam mass conc Negative Invalid Interpretation Code 5 [facility] Work Phone: Amitriptyline mass conc Negative Invalid Interpretation Code 10 [facility] Work Phone: Amphetamine mass conc Negative Invalid Interpretation Code 25 [facility] Work Phone: Barbiturates Screen mass conc Negative Invalid Interpretation Code 200 [facility] Work Phone: 1.004 Invalid Interpretation Code [facility] Work Phone: 5.4 Invalid Interpretation Code [facility] Work Phone: [phone] Invalid Interpretation Code 5 [facility] Work Phone: 38 Invalid Interpretation Code 5 [facility] Work Phone: 89 Invalid Interpretation Code 10 [facility] Work Phone: [phone] Invalid Interpretation Code 500 [facility] Work Phone: 0 Invalid Interpretation Code [facility] Work Phone: Vital Signon 01-16-2017 Body temperature abnormal Invalid Interpretation Code [facility] Work Phone: Otheron 12-19-2016 Strong advice to quit Invalid Interpretation Code [facility] Work Phone: 20.0 Count Invalid Interpretation Code [facility] Work Phone: 7 Invalid Interpretation Code [facility] Work Phone: Current Invalid Interpretation Code [facility] Work Phone: gb Invalid Interpretation Code [facility] Work Phone: Pre-contemplation Invalid Interpretation Code [facility] Work Phone: No Invalid Interpretation Code [facility] Work Phone: Cardiacon 11-18-2016 Cholesterol in HDL mass conc 55.0 mg/dL Invalid Interpretation Code 40-60 [facility] Work Phone: Triglyceride mass conc 85.0 mg/dL Invalid Interpretation Code <150 [facility] Work Phone: Hematologyon 11-18-2016 Basophils Auto #/vol (Bld) 0.5 % Invalid Interpretation Code [facility] Work Phone: Basophils/100 WBC Auto (Bld) 0.0 K/uL Invalid Interpretation Code 0.0-0.1 [facility] Work Phone: Eosinophils/100 WBC Auto (Bld) 1.4 % Invalid Interpretation Code [facility] Work Phone: Erythrocyte distribution width Auto Ratio (RBC) 12.5 % Invalid Interpretation Code 10.8-14.8 [facility] Work Phone: Hematocrit Auto Volume Fraction (Bld) 41.40 % Invalid Interpretation Code 36.0-48.0 [facility] Work Phone: Hemoglobin S Solubility test Ql (Bld) 13.8 Invalid Interpretation Code 12.0-16.0 [facility] Work Phone: Lymphocytes/100 WBC Auto (Bld) 26.1 % Invalid Interpretation Code [facility] Work Phone: MCH Auto Entitic mass (RBC) 29.4 pg Invalid Interpretation Code 27.0-34.0 [facility] Work Phone: MCHC Auto mass conc (RBC) 33.3 g/dL Invalid Interpretation Code 31.0-36.0 [facility] Work Phone: MCV Auto Entitic volume (RBC) 88.3 fL Invalid Interpretation Code 80.-100. [facility] Work Phone: Monocytes/100 WBC Auto (Bld) 5.0 % Invalid Interpretation Code [facility] Work Phone: Neutrophils/100 WBC Auto (Bld) 66.5 % Invalid Interpretation Code [facility] Work Phone: Nucleated RBC/100 WBC Ratio (Bld) 0.1 10*3/uL Invalid Interpretation Code 0.1-0.4 [facility] Work Phone: Nucleated RBC/100 WBC Ratio (Bld) 2.2 10*3/uL Invalid Interpretation Code 0.8-5.2 [facility] Work Phone: Nucleated RBC/100 WBC Ratio (Bld) 0.4 10*3/uL Invalid Interpretation Code 0.1-0.9 [facility] Work Phone: Nucleated RBC/100 WBC Ratio (Bld) 5.6 10*3/uL Invalid Interpretation Code 1.3-9.1 [facility] Work Phone: RBC Auto #/vol (Bld) 4.690 10*6/uL Invalid Interpretation Code 4.00-5.50 [facility] Work Phone: Imm/Pathon 11-18-2016 HCV genotype LUIS ENRIQUE+probe Nom 1a Invalid Interpretation Code [facility] Work Phone: Metabolic Panelon 11-18-2016 Albumin mass conc 4.40 g/dL Invalid Interpretation Code 3.2-5.3 [facility] Work Phone: ALP enzyme act/vol 52.0 U/L Invalid Interpretation Code 35-121 [facility] Work Phone: ALT enzyme act/vol 33.0 U/L Invalid Interpretation Code 5-59 [facility] Work Phone: ALT enzyme act/vol 37 U/L Invalid Interpretation Code 5-40 [facility] Work Phone: Anion gap 3 molar conc 14 mmol/L Invalid Interpretation Code [facility] Work Phone: AST enzyme act/vol 27 U/L Invalid Interpretation Code 9-40 [facility] Work Phone: AST enzyme act/vol 24.0 U/L Invalid Interpretation Code 10-42 [facility] Work Phone: Calcium mass conc 9.70 mg/dL Invalid Interpretation Code 8.7-10.8 [facility] Work Phone: Chloride molar conc 104 mmol/L Invalid Interpretation Code 95-111 [facility] Work Phone: CO2 molar conc 25 mmol/L Invalid Interpretation Code 21-32 [facility] Work Phone: Creatinine mass conc 0.80 mg/dL Invalid Interpretation Code 0.5-1.3 [facility] Work Phone: Glucose mass conc 76 mg/dL Invalid Interpretation Code 70-100 [facility] Work Phone: Potassium molar conc 3.90 mmol/L Invalid Interpretation Code 3.5-5.4 [facility] Work Phone: Protein mass conc 101 g/dL Invalid Interpretation Code 90-120 [facility] Work Phone: Protein mass conc 8.0 g/dL Invalid Interpretation Code 5.8-8.0 [facility] Work Phone: Sodium molar conc 139 mmol/L Invalid Interpretation Code 134-147 [facility] Work Phone: Urea nitrogen mass conc 9.0 mg/dL Invalid Interpretation Code 10-20 [employer] [facility] Work Phone: Urea nitrogen mass conc (Bld) 10 mg/dL Invalid Interpretation Code 7-20 [facility] Work Phone: Otheron 11-18-2016 Amylase enzyme act/vol 22 U/L Invalid Interpretation Code 7-33 [facility] Work Phone: Bilirubin Ql (U) 0.3 Invalid Interpretation Code 0.2-1.3 [facility] Work Phone: Cholesterol crystals Infrared spectroscopy Ql (Stone) 186 mg/dL Invalid Interpretation Code <200 [facility] Work Phone: Cholesterol.total/Cho lesterol in HDL mass ratio 3.4 {ratio} Invalid Interpretation Code <5 [facility] Work Phone: HCV RNA LUIS ENRIQUE+probe Qn 3676172.0 IU/mL Invalid Interpretation Code H [employer] [facility] Work Phone: Lipoprotein.beta/Lipo protein.alpha mass ratio 2.1 Invalid Interpretation Code <3.5 [employer] [facility] Work Phone: Lipoprotein.pre-beta mass conc 17.0 mg/dL Invalid Interpretation Code <30 [employer] [facility] Work Phone: Lipoprotein.pre-beta mass conc 114.0 mg/dL Invalid Interpretation Code <130 [employer] [facility] Work Phone: WBC LM Ql (Sput) 8.5 Invalid Interpretation Code 3.7-10.8 [employer] [facility] Work Phone: See Note Invalid Interpretation Code [employer] [facility] Work Phone: A1/A2 Invalid Interpretation Code [facility] Work Phone: 0.41 Invalid Interpretation Code [facility] Work Phone: F1[F1-F2] Invalid Interpretation Code [facility] Work Phone: 0 Invalid Interpretation Code [facility] Work Phone: 0.17 Invalid Interpretation Code [facility] Work Phone: [phone] Invalid Interpretation Code 150.-450. [facility] Work Phone: [phone] Invalid Interpretation Code 131-293 [facility] Work Phone: [phone] Invalid Interpretation Code H [facility] Work Phone: 78 Invalid Interpretation Code >60 [facility] Work Phone: 94 Invalid Interpretation Code >60 [facility] Work Phone: See Report Invalid Interpretation Code [facility] Work Phone: [phone] Thyroidon 11-18-2016 Thyrotropin Qn 1.70 uIU/mL Invalid Interpretation Code 0.40-4.40 [facility] Work Phone: Otheron 05-05-2016 Sly KEBEDE Invalid Interpretation Code [facility] Work Phone: [phone] Follow-up from last visit Invalid Interpretation Code [facility] Work Phone: Not ready Invalid Interpretation Code [facility] Work Phone: No Invalid Interpretation Code [facility] Work Phone: Contemplation Invalid Interpretation Code [facility] Work Phone: Strong advice to quit Invalid Interpretation Code [facility] Work Phone: 20.0 Count Invalid Interpretation Code [facility] Work Phone: 7 Invalid Interpretation Code [facility] Work Phone: [phone] Current Invalid Interpretation Code [facility] Work Phone: [phone] Metabolic Panelon 03-03-2016 Protein mass conc Provide self-help materials Invalid Interpretation Code [facility] Work Phone: Otheron 03-03-2016 Current Invalid Interpretation Code [facility] Work Phone: Sly KEBEDE. Invalid Interpretation Code [facility] Work Phone: No Invalid Interpretation Code [facility] Work Phone: Contemplation Invalid Interpretation Code [facility] Work Phone: Benefits of quitting Invalid Interpretation Code [facility] Work Phone: 10.0 Count Invalid Interpretation Code [facility] Work Phone: 7 Invalid Interpretation Code [facility] Work Phone: Imm/Pathon 05-13-2015 HCV Ab IA Ql Positive Invalid Interpretation Code NEGATIVE [facility] Work Phone: Otheron 05-13-2015 Negative Invalid Interpretation Code NEGATIVE [facility] Work Phone: Otheron 02-09-2015 Negative Invalid Interpretation Code NEGATIVE [facility] Work Phone: URINE Invalid Interpretation Code [facility] Work Phone: Positive Invalid Interpretation Code NEGATIVE [facility] Work Phone: Otheron 12-27-2012 10.0 Units Invalid Interpretation Code < 9 [facility] Work Phone: 14 Invalid Interpretation Code < 7 [facility] Work Phone: 3 Invalid Interpretation Code [facility] Work Phone: 1.0 Units Invalid Interpretation Code <= 0 [facility] Work Phone: Vital Signs Date Time Vital Sign Value Performing Clinician Ermai cabrera 08-28-2021 11:59-0400 Body temperature 97.81 [degF] Poonam Sánchez MD Work Phone: [employer] 08-28-2021 11:59-0400 Diastolic blood pressure 71 mm[Hg] Poonam Sánchez MD Work Phone: [employer] 08-28-2021 11:59-0400 Heart rate 81 /min Poonam Sánchez MD Work Phone: [employer] 08-28-2021 11:59-0400 Respiratory rate 18 /min [facility]chez [facility] 08-28-2021 11:59-0400 SaO2% (BldA) [Mass fraction] 97 % Poonam Sánchez MD [facility] 08-28-2021 11:59-0400 Systolic blood pressure 118 mm[Hg] Poonam [facility]ánchez MD [facility] 04-21-2017 20:01-0500 BMI (Body Mass Index) 34.72 kg/m2 [facility] 04-21-2017 20:01-0500 Body Temperature 98 [degF] [facility] 04-21-2017 20:01-0500 BP Diastolic 84 mm[Hg] [facility] 04-21-2017 20:01-0500 BP Systolic 123 mm[Hg] [facility] 04-21-2017 20:01-0500 BSA (Body Surface Area) 2.13 m2 [facility] 04-21-2017 20:01-0500 Height 167.64 cm [facility] 04-21-2017 20:01-0500 Pulse (Heart Rate) 93 /min [facility] 04-21-2017 20:01-0500 Pulse Oximetry 97 % [facility] 04-21-2017 20:01-0500 Respiratory Rate 20 /min [facility] 04-21-2017 20:01-0500 Weight 97.58 kg [facility] 01-16-2017 15:56-0400 BP Diastolic 84 mm[Hg] [facility] 01-16-2017 15:56-0400 BP Systolic 150 mm[Hg] [facility] 01-16-2017 15:56-0400 Pulse (Heart Rate) 66 /min [facility] 01-16-2017 15:45-0400 BMI (Body Mass Index) 36.48 kg/m2 [facility] 01-16-2017 15:45-0400 Body Temperature 97.8 [degF] [facility] 01-16-2017 15:45-0400 BP Diastolic 91 mm[Hg] [facility] 01-16-2017 15:45-0400 BP Systolic 166 mm[Hg] [facility] 01-16-2017 15:45-0400 BSA (Body Surface Area) 2.18 m2 [facility] 01-16-2017 15:45-0400 Height 167.64 cm [facility] 01-16-2017 15:45-0400 Pulse (Heart Rate) 66 /min [facility] 01-16-2017 15:45-0400 Pulse Oximetry 100 % [facility] 01-16-2017 15:45-0400 Respiratory Rate 17 /min [facility] 01-16-2017 15:45-0400 Weight 102.51 kg [facility] 12-19-2016 17:02-0400 BMI (Body Mass Index) 34.54 kg/m2 [facility] 12-19-2016 17:02-0400 Body Temperature 98.6 [degF] [facility] 12-19-2016 17:02-0400 BP Diastolic 66 mm[Hg] [facility] 12-19-2016 17:02-0400 BP Systolic 105 mm[Hg] [facility] 12-19-2016 17:02-0400 BSA (Body Surface Area) 2.13 m2 [facility] 12-19-2016 17:02-0400 Height 167.64 cm [facility] 12-19-2016 17:02-0400 Pulse (Heart Rate) 72 /min [facility] 12-19-2016 17:02-0400 Pulse Oximetry 98 % [facility] 12-19-2016 17:02-0400 Respiratory Rate 18 /min [facility] 12-19-2016 17:02-0400 Weight 97.07 kg [facility] 12-16-2016 19:24-0400 BMI (Body Mass Index) 34.58 kg/m2 [facility] 12-16-2016 19:24-0400 Body Temperature 99.1 [degF] [facility] 12-16-2016 19:24-0400 BP Diastolic 77 mm[Hg] [facility] 12-16-2016 19:24-0400 BP Systolic 123 mm[Hg] [facility] 12-16-2016 19:24-0400 BSA (Body Surface Area) 2.13 m2 [facility] 12-16-2016 19:24-0400 Height 167.64 cm [facility] 12-16-2016 19:24-0400 Pulse (Heart Rate) 86 /min [facility] 12-16-2016 19:24-0400 Pulse Oximetry 97 % [facility] 12-16-2016 19:24-0400 Respiratory Rate 16 /min [facility] 12-16-2016 19:24-0400 Weight 97.18 kg [facility] 11-18-2016 17:07-0400 BP Diastolic 77 mm[Hg] [facility] 11-18-2016 17:07-0400 BP Systolic 140 mm[Hg] [facility] 11-18-2016 17:07-0400 Pulse (Heart Rate) 65 /min [facility] 11-18-2016 17:07-0400 Respiratory Rate 18 /min [facility] 11-18-2016 15:53-0400 BMI (Body Mass Index) 33.89 kg/m2 [facility]2016 15:53-0400 Body Temperature 98.4 [degF] [facility] 11-18-2016 15:53-0400 BP Diastolic 83 mm[Hg] [facility] 11-18-2016 15:53-0400 BP Systolic 150 mm[Hg] [facility] 11-18-2016 15:53-0400 BSA (Body Surface Area) 2.11 m2 [facility] 11-18-2016 15:53-0400 Height 167.64 cm [facility] 11-18-2016 15:53-0400 Pulse (Heart Rate) 65 /min [facility] 11-18-2016 15:53-0400 Pulse Oximetry 100 % [facility] 11-18-2016 15:53-0400 Respiratory Rate 15 /min [facility] 11-18-2016 15:53-0400 Weight 95.26 kg [facility] 10-18-2016 17:31-0400 BMI (Body Mass Index) 32.45 kg/m2 [facility] 10-18-2016 17:31-0400 Body Temperature 98.3 [degF] [facility] 10-18-2016 17:31-0400 BP Diastolic 84 mm[Hg] [facility] 10-18-2016 17:31-0400 BP Systolic 147 mm[Hg] [facility] 10-18-2016 17:31-0400 BSA (Body Surface Area) 2.06 m2 [facility] 10-18-2016 17:31-0400 Height 167.64 cm [facility] 10-18-2016 17:31-0400 Pulse (Heart Rate) 81 /min [facility] 10-18-2016 17:31-0400 Pulse Oximetry 98 % [facility] 10-18-2016 17:31-0400 Respiratory Rate 16 /min [facility] 10-18-2016 17:31-0400 Weight 91.2 kg [facility] 05-05-2016 15:13-0500 BP Diastolic 76 mm[Hg] [facility] 05-05-2016 15:13-0500 BP Systolic 118 mm[Hg] [facility] 05-05-2016 15:13-0500 Pulse (Heart Rate) 87 /min [facility] 05-05-2016 15:06-0500 BMI (Body Mass Index) 29.7 kg/m2 [facility] 05-05-2016 15:06-0500 Body Temperature 97.6 [degF] [facility] 05-05-2016 15:06-0500 BP Diastolic 67 mm[Hg] [facility] 05-05-2016 15:06-0500 BP Systolic 145 mm[Hg] [facility] 05-05-2016 15:06-0500 BSA (Body Surface Area) 1.97 m2 [facility] 05-05-2016 15:06-0500 Height 167.64 cm [facility] 05-05-2016 15:06-0500 Pulse (Heart Rate) 101 /min [facility] 05-05-2016 15:06-0500 Pulse Oximetry 98 % [facility] 05-05-2016 15:06-0500 Respiratory Rate 16 /min [facility] 05-05-2016 15:06-0500 Weight 83.46 kg [facility] 03-03-2016 16:33-0500 BMI (Body Mass Index) 32.5 kg/m2 [facility] 03-03-2016 16:33-0500 Body Temperature 97.5 [degF] [facility] 03-03-2016 16:33-0500 BP Diastolic 76 mm[Hg] [facility] 03-03-2016 16:33-0500 BP Systolic 118 mm[Hg] [facility] 03-03-2016 16:33-0500 BSA (Body Surface Area) 2.06 m2 [facility] 03-03-2016 16:33-0500 Height 167.64 cm [facility] 03-03-2016 16:33-0500 Pulse (Heart Rate) 82 /min [facility] 03-03-2016 16:33-0500 Pulse Oximetry 98 % [facility] 03-03-2016 16:33-0500 Respiratory Rate 18 /min [facility] 03-03-2016 16:33-0500 Weight 91.34 kg [facility] 11-06-2015 17:25-0400 BMI (Body Mass Index) 34.54 kg/m2 [facility] 11-06-2015 17:25-0400 BP Diastolic 78 mm[Hg] [facility] 11-06-2015 17:25-0400 BP Systolic 130 mm[Hg] [facility] 11-06-2015 17:25-0400 BSA (Body Surface Area) 2.13 m2 [facility] 11-06-2015 17:25-0400 Height 167.64 cm [facility] 11-06-2015 17:25-0400 Pulse (Heart Rate) 79 /min [facility] 11-06-2015 17:25-0400 Pulse Oximetry 97 % [facility] 11-06-2015 17:25-0400 Respiratory Rate 18 /min [facility] 11-06-2015 17:25-0400 Weight 97.07 kg [facility] 09-01-2015 16:38-0400 BMI (Body Mass Index) 35.69 kg/m2 [facility] 09-01-2015 16:38-0400 Body Temperature 97.1 [degF] [facility] 09-01-2015 16:38-0400 BP Diastolic 81 mm[Hg] [facility] 09-01-2015 16:38-0400 BP Systolic 133 mm[Hg] [facility] 09-01-2015 16:38-0400 BSA (Body Surface Area) 2.16 m2 [facility] 09-01-2015 16:38-0400 Height 167.64 cm [facility] 09-01-2015 16:38-0400 [facility] 09-01-2015 16:38-0400 Pulse Oximetry 98 % [facility] 09-01-2015 16:38-0400 Respiratory Rate 18 /min [facility] 09-01-2015 16:38-0400 Weight 100.3 kg [facility] 06-01-2015 16:41-0500 BMI (Body Mass Index) 34.62 kg/m2 [facility] 06-01-2015 16:41-0500 Body Temperature 98.9 [degF] [facility] 06-01-2015 16:41-0500 BP Diastolic 80 mm[Hg] [facility] 06-01-2015 16:41-0500 BP Systolic 134 mm[Hg] [facility] 06-01-2015 16:41-0500 BSA (Body Surface Area) 2.13 m2 [facility] 06-01-2015 16:41-0500 Height 167.64 cm [facility] 06-01-2015 16:41-0500 Pulse (Heart Rate) 75 /min [facility] 06-01-2015 16:41-0500 Pulse Oximetry 99 % [facility] 06-01-2015 16:41-0500 Respiratory Rate 18 /min [facility] 06-01-2015 16:41-0500 Weight 97.3 kg [facility] 05-13-2015 16:25-0500 BMI (Body Mass Index) 33.61 kg/m2 [facility] 05-13-2015 16:25-0500 Body Temperature 98.8 [degF] [facility] 05-13-2015 16:25-0500 BP Diastolic 105 mm[Hg] [facility] 05-13-2015 16:25-0500 BP Systolic 163 mm[Hg] [facility] 05-13-2015 16:25-0500 BSA (Body Surface Area) 2.1 m2 [facility] 05-13-2015 16:25-0500 Height 167.64 cm [facility] 05-13-2015 16:25-0500 Pulse (Heart Rate) 97 /min [facility] 05-13-2015 16:25-0500 Pulse Oximetry 98 % [facility] 05-13-2015 16:25-0500 Respiratory Rate 18 /min [facility] 05-13-2015 16:25-0500 Weight 94.46 kg [facility] 03-02-2015 12:26-0500 BMI (Body Mass Index) 32.64 kg/m2 [facility] 03-02-2015 12:26-0500 Body Temperature 96.9 [degF] [facility] 03-02-2015 12:26-0500 BP Diastolic 77 mm[Hg] [facility] 03-02-2015 12:26-0500 BP Systolic 133 mm[Hg] [facility] 03-02-2015 12:26-0500 BSA (Body Surface Area) 2.07 m2 [facility] 03-02-2015 12:26-0500 Height 167.64 cm [facility] 03-02-2015 12:26-0500 Pulse (Heart Rate) 90 /min [facility] 03-02-2015 12:26-0500 Pulse Oximetry 99 % [facility] 03-02-2015 12:26-0500 Respiratory Rate 16 /min [facility] 03-02-2015 12:26-0500 Weight 91.74 kg [facility] 02-09-2015 14:42-0500 BMI (Body Mass Index) 31.86 kg/m2 [facility] 02-09-2015 14:42-0500 Body Temperature 98.8 [degF] [facility] 02-09-2015 14:42-0500 BP Diastolic 89 mm[Hg] [facility] 02-09-2015 14:42-0500 BP Systolic 132 mm[Hg] [facility] 02-09-2015 14:42-0500 BSA (Body Surface Area) 2.04 m2 [facility] 02-09-2015 14:42-0500 Height 167.64 cm [facility] 02-09-2015 14:42-0500 Pulse (Heart Rate) 83 /min [facility] 02-09-2015 14:42-0500 Respiratory Rate 16 /min [facility] 02-09-2015 14:42-0500 Weight 89.53 kg [facility] 01-09-2013 15:02-0400 Body Temperature 98.1 [degF] [facility] 01-09-2013 15:02-0400 BP Diastolic 87 mm[Hg] [facility] 01-09-2013 15:02-0400 BP Systolic 129 mm[Hg] [facility] 01-09-2013 15:02-0400 Pulse (Heart Rate) 72 /min [facility] Encounters Encounter Date Encounter Type Care Provider Facility Start: 12-06-2023 End: 12-06-2023 ambulatory SARKIS ONOFRE Not Available Start: 04-22-2023 End: 04-23-2023 Emergency department patient visit KARLI OJEDA [facility] Start: 01-23-2023 End: 01-24-2023 Emergency department patient visit [facility] Start: 09-21-2021 End: 09-21-2021 Patient encounter procedure MD Jose Packer Work Phone: [facility] Start: 09-07-2021 End: 09-08-2021 ambulatory [facility] Start: 09-07-2021 End: 09-07-2021 Subsequent hospital visit by physician Maryam Packer MD Work Phone: [facility] Start: 08-31-2021 End: 08-31-2021 Patient encounter procedure JENNY Cuellar Work Phone: [facility] Start: 08-28-2021 End: 08-28-2021 Emergency department patient visit POONAM SÁNCHEZ [facility] Start: 08-28-2021 End: 08-28-2021 Emergency department patient visit Poonam Sánchez MD Work Phone: [facility] Comment on above: Laceration of left h and without foreign body, initial encounter (Primary Dx) Start: 07-14-2021 End: 07-14-2021 Patient encounter procedure Physician None Work Phone: [facility] Start: 06-08-2021 End: 06-08-2021 Patient encounter procedure Physician None Work Phone: [facility] Start: 05-17-2021 End: 05-17-2021 Patient encounter procedure Physician None Work Phone: [facility] Start: 05-12-2021 End: 05-12-2021 Patient encounter procedure [facility] Start: 07-18-2018 Patient encounter procedure [facility] Facility:[facility] Start: 07-09-2018 Patient encounter procedure [facility] Facility:[facility] Start: 05-24-2018 End: 05-25-2018 Patient encounter procedure [facility] Facility:[facility] Start: 03-05-2018 End: 03-05-2018 Emergency department patient visit LIZBETH COLLINS Facility:[facility] Start: 01-10-2018 End: 01-10-2018 Emergency department patient visit PJ LINDSEY Facility:[facility] Start: 01-04-2018 End: 01-04-2018 Emergency department patient visit CLAUDY LIANGEUFEMIA Facility:[facility] Start: 04-21-2017 Office outpatient vi sit 15 minutes Rewa Maverick Other [facility] Start: 01-16-2017 Medical Rewa Temple Other [facility] Start: 12-19-2016 Office outpatient vi sit 15 minutes Edgardo Temple Other [facility] Start: 12-16-2016 Office outpatient vi sit 15 minutes Saul Ornelas Other [facility] Start: 11-18-2016 Apolipoprotein each [facility] Start: 11-18-2016 Assay of glutamyltra se gamma [facility] Start: 11-18-2016 Assay of haptoglobin quantitative [facility] Start: 11-18-2016 Assay of nephelometr y each analyte wood [facility] Start: 11-18-2016 Bilirubin total [facility] Start: 11-18-2016 Comprehensive metabo lic panel [facility] Start: 11-18-2016 Periodic preventive med est patient 40-64yrs [facility] Other [facility] Start: 11-18-2016 Transferase alanine amino alt sgpt [facility] Start: 10-18-2016 Office outpatient vi sit 15 minutes Ramya Zavala Other [facility] Start: 10-18-2016 Tobacco use cessatio n intensive >10 minutes [facility] Start: 05-05-2016 Behavioral Health Mari Corey do Other [facility] Start: 05-05-2016 Apolipoprotein each [facility] Start: 05-05-2016 Assay of glutamyltra se gamma [facility] Start: 05-05-2016 Assay of haptoglobin quantitative [facility] Start: 05-05-2016 Assay of nephelometr y each analyte wood [facility] Start: 05-05-2016 Bilirubin total [facility] Start: 05-05-2016 Comprehensive metabo lic panel [facility] Start: 05-05-2016 Iadna hepatitis c di rect probe technique [facility] Start: 05-05-2016 Mammogram, screening Edgardo [facility] Start: 05-05-2016 Nfct agnt genotyp nu cleic acid hepatitis c virus [facility] Start: 05-05-2016 Office outpatient vi sit 15 minutes Ramya Sally Other [facility] Start: 05-05-2016 Transferase alanine amino alt sgpt [facility] Start: 05-05-2016 Tobacco use cessatio n intermediate 3-10 minutes [facility] Start: 03-03-2016 Substance Abuse Katrin Fried Other [facility] Start: 03-03-2016 Office outpatient vi sit 15 minutes Ramya Sally Other [facility] Start: 03-03-2016 Tobacco use cessatio n intermediate 3-10 minutes [facility] Start: 11-06-2015 Behavioral Health Katrin Fried Other [facility] Start: 11-06-2015 Office outpatient vi sit 15 minutes Ramya Sally Other [facility] Start: 09-01-2015 Behavioral Health Lesly Kulkarni ch Other [facility] Start: 09-01-2015 Office outpatient vi sit 15 minutes Ramya Sally Other [facility] Start: 06-01-2015 Mammogram, screening [facility] Start: 06-01-2015 Office outpatient vi sit 15 minutes Ramya Sally Other [facility] Start: 05-13-2015 [facility] Start: 05-13-2015 Office outpatient vi sit 15 minutes Carine Penix Other [facility] Start: 03-02-2015 Behavioral Health Timbo Tapia Other [facility] Start: 03-02-2015 Mammogram, screening [facility] Start: 03-02-2015 Office outpatient vi sit 15 minutes Ramya Sally Other [facility] Start: 02-09-2015 Cul prsmptv pthgnc organism scrn w/colony estimj [facility] Start: 02-09-2015 Iadna chlamydia trachomatis amplified probe tq [facility] Start: 02-09-2015 Iadna gardnerella vaginalis direct probe tq [facility] Start: 02-09-2015 Office outpatient vi sit 15 minutes Carine Penix Other [facility] Start: 01-09-2013 Dental Tomy Keita Other [facility] Start: 12-27-2012 Behavioral Health Erika Lux Other [facility] Start: 12-27-2012 Dental Freddie Washin gton Other [facility] Procedures Date Procedure Procedure Detail Performing Clinician Start: 09-07-2021 Anion gap [Moles/Vol] Unknown Provider Result Start: 09-07-2021 Comprehensive metabolic panel Unknown Provider Result Start: 09-07-2021 GLOMERULAR FILTRATION RATE, ESTIMATED Unknown Provider Result Start: 06-08-2021 Ultrasound elastography of liver Physician None Work Phone: Start: 06-08-2021 US scan of upper abdomen Physician None Work Phone: Start: 04-21-2017 PHQ9 Administered Rewa Temple Start: 04-21-2017 SBIRT- Full Screen *POSITIVE* Referred to Provider Rewa Temple Start: 01-16-2017 End: 01-16-2017 Drug test prsmv read direct optical obs pr date Rewa Temple Start: 11-18-2016 PHQ9 Administered Rewa Temple Start: 11-18-2016 End: 11-18-2016 Drug test prsmv read direct optical obs pr date Rewa Temple Start: 11-18-2016 Apolipoprotein each Rewa Temple Start: 11-18-2016 Assay of glutamyltrase gamma Rewa Temple Start: 11-18-2016 Assay of haptoglobin quantitative Rewa Temple Start: 11-18-2016 Assay of nephelometry each analyte wood Rewa Temple Start: 11-18-2016 Assay of thyroid stimulating hormone tsh [facility] Start: 11-18-2016 Bilirubin total Rew[facility] Start: 11-18-2016 Blood count complete auto&auto difrntl wbc [facility] Start: 11-18-2016 Comprehensive metabolic panel Rew[facility] Start: 11-18-2016 Iadna hepatitis c quant & reverse dumpman Rewa Temple Start: 11-18-2016 Lipid panel Rew[facility] Temple Start: 11-18-2016 Nfct agnt genotyp nucleic acid hepatitis c virus [facility] Start: 11-18-2016 Transferase alanine amino alt sgpt [facility] Start: 10-18-2016 HIV Refused Rewa Temple Start: 05-06-2016 Psychotherapy w/patient 30 minutes Rewa Temple Start: 05-05-2016 Orthopedics. Rewa Temple Start: 03-03-2016 HIV Refused Rewa Temple Start: 03-03-2016 Brief Intervention Rewa Temple Start: 03-03-2016 PHQ9 Administered Rewa Temple Start: 03-03-2016 Psychotherapy w/patient 30 minutes Rewa Temple Start: 03-03-2016 Screening, Brief Intervention, Referral and Treatment [facility] Start: 12-18-2015 Maile Sánchez MD Work Phone: Start: 11-06-2015 Drug screen non tlc devices Rew[facility] Start: 11-06-2015 Psychotherapy w/patient 30 minutes Rewa Temple Start: 09-01-2015 HIV Refused Rewa Temple Start: 09-01-2015 PHQ9 Administered Rewa Temple Start: 09-01-2015 Psychotherapy w/patient 30 minutes Rewa Temple Start: 06-01-2015 Smoking cessation education Rewa Temple Start: 05-13-2015 Patient tested w/in past 12 months and denies high risk behavior Rewa Temple Start: 05-13-2015 Acute hepatitis panel Rewa Temple Start: 05-13-2015 Collection venous blood venipuncture Rewa Temple Start: 03-02-2015 Mammogram, screening Rewa Temple Start: 03-02-2015 Need PAP scheduled Rewa Tepmle Start: 03-02-2015 PHQ9 Administered Rewa Temple Start: 03-02-2015 Psychotherapy w/patient 30 minutes Rewa Temple Start: 03-02-2015 SBIRT Pre-Screening *NEGATIVE* Rewa Temple Start: 03-02-2015 Smoking cessation education Rewa Temple Start: 03-02-2015 Patient tested w/in past 12 months and denies high risk behavior Rewa Temple Start: 02-09-2015 Patient tested w/in past 12 months and denies high risk behavior Rewa Temple Start: 02-09-2015 Cul prsmptv pthgnc organism scrn w/colony estimj Rewa Temple Start: 02-09-2015 Iadna chlamydia trachomatis amplified probe tq Rew[facility] Start: 02-09-2015 Iadna gardnerella vaginalis direct probe tq [facility] Start: 02-09-2015 Iadna neisseria gonorrhoeae amplified probe tq Rewa Temple Start: 01-09-2013 Currently sees dental Rewa Temple Start: 01-09-2013 Prophylaxis - adult Rewa Temple Start: 12-27-2012 Bitewings -- 4 films Rewa Temple Start: 12-27-2012 Comprehensive Oral Exam -- New/Est Patient Rewa Temple Start: 12-27-2012 Currently sees dental Rewa Temple Start: 12-27-2012 HIV SCREENING* in house negative aketcham Rewa Temple Start: 12-27-2012 Intraoral - periapical - each additional film Rewa Temple Start: 12-27-2012 intraoral -- periapical film Rewa Temple Start: 12-27-2012 NEW DENTAL PATIENT Rewa Temple Start: 12-27-2012 Panorex Rewa Temple Start: 12-27-2012 Psychotherapy w/patient 30 minutes Rewa Temple History of cholecystectomy S/P laparoscopic cholecystectomy Poonam Sánchez MD Work Phone: Plan of Treatment Date Care Activity Detail Author Start: 08-29-2031 DTaP/Tdap/Td vaccine (2 - Td or Tdap) DTaP/Tdap/Td vaccine (2 - Td or Tdap) [facility] Start: 12-17-2025 Screening for malign ant neoplasm of colon [facility] Start: 11-25-2021 Influenza vaccination Flu vacc ine (Season Ended) [facility] Start: 11-19-2021 Lipid panel Lipids [facility] Start: 2017 Screening for malign ant neoplasm of colon [facility] Start: 01-16-2017 Screening mamm ography, bilateral (2-view study of each breast), [facility] Start: 2012 Screening for malign ant neoplasm of breast Breast cancer screen [facility] Start: 2002 Screening for malign ant neoplasm of cervix [facility] Start: 1993 Screening for malign ant neoplasm of cervix Pap smear [facility] Start: 06-18-1987 HIV screening HIV screen [facility] Start: 1984 Depression Monitoring Depression Mon itoring [facility] Start: 1978 Pneumococcal 0-64 ye ars Vaccine (1 - PCV) Pneumococcal 0-64 years Vaccine (1 - PCV) [facility] Start: 1977 COVID-19 Vaccine (1) COVID-19 Vaccin e (1) [facility] Hepatitis C virus RN A [Units/volume] (viral load) in Serum or Plasma by LUIS ENRIQUE with probe detection [facility] Work Phone: Immunizations Immunization Date Immunization Notes Care Provider Fa cility 08-28-2021 tetanus toxoid, redu adali diphtheria toxoid, and acellular pertussis vaccine, adsorbed Poonam Sánchez MD Work Phone: [facility] Payers Date Payer Category Payer Unknown 2016 Unknown [id number] 2.1 [id number] 2014 Unknown [id number] 2023 Medicaid [id number] 2. [id number] 2012 Unknown none [id number] 1972 Unknown [id number] 2.16.8 [id number] 1972 Unknown [id number] 2.16.8 [id number] 1972 Unknown [id number] 2.16.8 [id number] 1972 Unknown [id number] 2.16.8 [id number] 1972 Unknown [id number] 2.16.8 [id number] 1972 Unknown [id number] 2.16.8 [id number] 1972 Unknown [id number] 2.16.8 [id number] 1972 Unknown [id number] 2.16.8 [id number] 1972 Unknown [id number] 2.16.8 [id number] 1972 Unknown [id number] 2.16.8 [id number] 1972 Unknown [id number] 2.16.8 [id number] 1972 Unknown [id number] 2.16.84 [id number] Self-pay SELF PAY [id number] Social History Date Type Detail Facility Start: Current every day smoker [facility] Work Phone: Start: social [facility] Start: 2 coffee qd [facility] Start: heroin [facility] Start: 01-15-2019 [facility] Work Phone: Start: 01-15-2019 None [facility] [employer] Work Phone: Start: 01-15-2019 1-2/Day [facility] [employer] Work Phone: Start: 01-15-2019 Cigarettes [facility] [employer] Work Phone: Start: 01-15-2019 < 1 pack per day [facility] Work Phone: Start: 1970 Sex Assigned At Female L [facility] Work Phone: Start: 07-12-2013 Cigarettes smoked current (pack per day) - Reported 0.25 [employer] Work Phone: Start: 07-12-2013 Tobacco use and exposure Smokeless tobacco non-user [employer] Phone: Start: 08-28-2021 Alcohol intake Current drinke r of alcohol (finding) [employer] Work Phone: Start: 08-19-2015 History SDOH Alcohol Comment [employer] [facility] Work Phone: Start: 1970 Sex Assigned At Not on file [facility] [employer] Work Phone: Evaluation note Note Date & Type Note Facility Evaluation note No assessment information availa ble [facility] Work Phone: Evaluation note Note Date & Type Note Facility Evaluation note Diagnosis Laceration of left hand without foreign body, initial encounter- Primary documented in this encounter [employer] Phone: Hospital Discharge instructions InstructionsAttachments Note Date & Type Note Facility Hospital Discharge instructions Poonam Sánchez MD - 08/28/2021 Leave the Steri-Strips and skin glue in place. Change the dressing if it gets wet or dirty. Elevate your hand to reduce swelling and pain. [id number] pain medication as needed. Remove any Steri-Strips or skin glue that remain after 10 days. The following attachments cannot be sent through Care Everywhere.Lacerations: Adhesives (Liberian)documented in this encounter [facility] [employer] Phone: Summary Purpose Family History No Family History Records Found Relationship Condition Age at Onset Recorded Date/T pia Unknown Medical History?Unknown Unknown Apri l 2013 11:04pm Medical History?Unknown Unknown Octo wilmar 2018 4:56am Additional Family Hi story?PT WAS ADOPTED Unknown January 14, 2016 6:35am Additional Family Hi story?PT WAS ADOPTED Unknown January 15, 2019 4:56am Advance Directives No Advanced Directives Records Found Advance Directive Response Recorded Date/ Time [facility] DNR Comfort Care No Directive, No SS Referral January 15, 2019 4:56am [facility] DNR Comfort Ca re Arrest No Directive, No SS Referral January 15, 2019 4:56am Living Will No Directive, No SS Referral Oct jessica 2018 4:56am Durable Power of Photo Colorer [facility] Care No Directive, No SS Referral January 15, 2019 4:56am Documents on File Type Date Recorded 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 Expl anation ACP-Advance Directive ACP-Power of Photo Colorer Chief Complaint and Reason for Visit Chief Complaint DEPRESSION CHRONIC HEPATITIS Chronic viral hepatitis C HEP C Chief Complaint Chronic viral hepati tis C HEP C Chief Complaint HEP C Additional Source Comments INFORMATION SOURCE (unrecogn ized section and content) DATE CREATED AUTHOR 11/04/2018 [facility] DATE CREATED AUTHOR AUTHOR'S ORGANIZ ATION 09/08/2021 [facility] DATE CREATED AUTHOR AUTHOR'S ORGANIZ ATION 09/23/2021 [facility] DATE CREATED AUTHOR AUTHOR'S ORGANIZ ATION 01/24/2023 [facility] DATE CREATED AUTHOR AUTHOR'S ORGANIZ ATION 04/23/2023 [facility] DATE CREATED AUTHOR AUTHOR'S ORGANIZ ATION 12/08/2023 [facility] EPIC Goals (unrecognized section and content) Goals may be documented in a n alternate sectionGoals may be documented in an alternate sectionGoals may be documented in an alternate section Reason for Visit (unrecogniz ed section and content) Reason Comments Laceration left hand Care Teams (unrecognized sec tion and content) 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 This clinical summary was aggregated from multiple sources. Caution should be exercised in using it in the provision of clinical care. This summary normalizes information from multiple sources, and as a consequence, information in this document may materially change the coding, format and clinical context of patient data. In addition, data may be omitted in some cases. CLINICAL DECISIONS SHOULD BE BASED ON THE PRIMARY CLINICAL RECORDS. [employer] provides no warranty or guarantee of the accuracy or completeness of information in this document.
== END 2024-01-10 09:29 | disposition home or self-care (01) ==
LOC: LAB 09:30
PROVIDERS: PCP Nurse Practitioner Family
DX: T78.2XXA Anaphylactic shock, unspecified, initial encounter (principal)
CPT/HCPCS: 36415; 83519; 86008

== ENCOUNTER 2024-09-05 16:16 | Emergency (ER) | payer MEDICAID, SELFPAY ==
[2024-09-05 16:23] VITALS: BP 121/90; PULSE 99; TEMP 36.9; O2SAT 97; BMI 32.6
--- NOTE | 2024-09-05 16:45 | ED_ITS ---
HPI HPI - General Adult General Chief complaint: Nausea/Vomiting/Diarrhea Stated complaint: Nausea/Vomiting/Diarrhea Time Seen by Provider: 09/05/24 16:19 Source: patient Mode of arrival: walk-in Limitations: no limitations History of Present Illness HPI narrative: With 8-day history of nausea, vomiting, diarrhea patient has family members that had similar symptoms prior. Patient states pain in abdomen has been intermittent stabbing in quality she has been taking Phenergan with some relief of her vomiting. Continues having liquid watery diarrhea denies any hematemesis denies any rectal bleeding. denies urinary bleeding. Intake. Symptoms mild to moderate severity pending improved symptoms fluids worsens symptoms Onset (ago): day(s) (8) Radiation: Reports abdomen; Denies back Quality: Reports stabbing Pain Consistency: Reports intermittent Relieving factors: Reports medication Exacerbating factors: Reports eating Associated symptoms: Reports nausea/vomiting; Denies chest pain or cough Related Data Home Medications ?Medication ?Instructions ?Recorded ?Confirmed famotidine 20 mg tablet mg 09/05/24 Previous Rx's ?Medication ?Instructions ?Recorded magnesium oxide 250 mg PO DAILY #3 tabs 08/25 05/21 potassium bicarbonate-citric acid 25 meq PO DAILY #3 e a 09/05/24 25 mEq effervescent tablet promethazine 25 mg tablet 25 mg PO Q6H PRN nausea and 09/05/24 vomiting #14 tabs Allergies Allergy/AdvReac Type Severity Reaction Status Date / Time latex Allergy Mild Hives Verified 09/05/24 16:21 Review of Systems ROS Status of ROS 10 or more systems reviewed and unremark able except as noted in history and below Constitutional Reports: fatigue Ears, nose, mouth, and throat Reports: dry mouth; Denies: ear pain Cardiovascular Denies: chest pain Respiratory Denies: cough Gastrointestinal Reports: abdominal pain, nausea, vomiting and diarrhea Genitourinary Denies: blood in urine Musculoskeletal Reports: back pain (States chronic back pain) Endocrine Reports: fatigue PFSH PFSH Social History Little interest or pleasure in doing things: not at all Feeling down, depressed, or hopeless: not at all Exam Constitutional Vital Signs, click to edit/add: Last Vital Signs Temp 98.4 F 09/05/24 16:23 Pulse 87 09/05/24 18:34 Resp 18 09/05/24 18:34 BP 109/64 09/05/24 18:34 Pulse Ox 98 09/05/24 18:34 O2 Del Method Room Air 09/05/24 16:23 Documenting provider has reviewed patient's vital signs: yes Common normals: no apparent distress and oriented x3 Exam limitations: no altered mental status General appearance: cooperative Orientation/consciousness: Yes awake HENMT Common normals: normocephalic, external ears normal, EACs normal and TMs normal bilaterally; oral mucous membranes not moist Head and scalp: normal to inspection Nose: external nose normal External auditory canal: EACs normal Tympanic membrane: TMs normal bilaterally Mouth: moist mucous membranes abnormal (Dry cracked lips) Eye Common normals: PERRL Neck & C-Spine Common normals: full ROM Chest Common normals: inspection of chest normal Chest: no tenderness Respiratory Common normals: normal respiratory effort and clear to auscultation bilaterally Effort & inspection: able to speak in complete sentences Cardio Common normals: regular rate, regular rhythm, S1 normal heart sound and S2 normal heart sound GI Common normals: Normal to inspection, nondistended, normoactive bowel sounds present, soft to palpation and non-tender Extremity Common normals: normal to inspection and full ROM Neuro Common normals: oriented x3 Sensorium/orientation: awake and alert Psych Common normals: thought process normal and cooperative Course Vital Signs Vital signs: Vital Signs Temperature 98.4 F 09/05/24 16:23 Pulse Rate 99 H 09/05/24 16:23 Respiratory Rate 18 09/05/24 16:23 Blood Pressure 121/90 09/05/24 16:23 Pulse Oximetry 97 09/05/24 16:23 Oxygen Delivery Method Room Air 09/05/24 16:23 Temperature 98.4 F 09/05/24 16:23 Pulse Rate 87 09/05/24 18:34 Respiratory Rate 18 09/05/24 18:34 Blood Pressure 109/64 09/05/24 18:34 Pulse Oximetry 98 09/05/24 18:34 Oxygen Delivery Method Room Air 09/05/24 16:23 Medical Decision Making MDM Narrative Medical decision making narrative: 8 Day history of nausea vomiting diarrhea. Had family members with similar symptoms. 0.9% saline 1 L patient subsequently CBC CMP lipase urinalysis magnesium. Patient has negative tenderness currently does not want offered Zofran for nausea states she not nauseous currently. Bowel Sounds present x 4 / soft x 4 quadrants. Negative tenderness negative distention x-ray not indicated. Discussed plan of care with patient at bedside she does not agree that we can speak with her and family members in the room. Patient reviewed labs with patient she is feeling better at this point we are going to get her urine analysis we have discussed follow-up with primary care clear liquid diet medications including Phenergan 25 mg 1 every 6 hours for nausea and vomiting Bentyl 10 mg every 6 hours #20 for abdominal cramping will also prescribe K-Lyte 25 mill equivalents once daily for 3 days as well as magnesium oxide 250 mg once daily for 3 days. Patient to follow-up with primary care return to if any symptoms worsen or new symptoms develop. Differential Diagnosis Differential Diagnosis: Nausea, vomiting, diarrhea, abdominal pain, viral illness, UTI. Lab Data Lab results reviewed: Yes I reviewed the patient's lab results Lab results narrative: Patient noted to have 3.3 potassium 1.7 magnesium patient states she did take K- Lyte 25 mill equivalents earlier in the week. Labs: Lab Results 09/05/24 09/05/24 Range/Units 16:15 16:55 WBC 8.1 (4.0-11.0) 10^3/uL RBC 4.53 (4.20-5.40) 10^6/uL Hgb 13.4 (12.0-16.0) g/dL Hct 37.3 (36.0-48.0) % MCV 82.3 (81.0-99.0) fL MCH 29.6 (26.7-34.0) pg MCHC 35.9 H (29.9-35.2) g/dL RDW 13.0 (11.0-15.0) % Plt Count 313 (150-450) 10^3/uL MPV 10.6 (9.5-13.5) fL Neut % (Auto) 54.2 (43.0-75.0) % Lymph % (Auto) 30.1 (20.5-60.0) % Wayne % (Auto) 10.4 (1.7-12.0) % Eos % (Auto) 4.7 (0.9-7.0) % Baso % (Auto) 0.4 (0.2-2.0) % Neut # (Auto) 4.4 (1.4-6.5) 10^3/uL Lymph # (Auto) 2.4 (1.2-3.8) 10^3/uL Wayne # (Auto) 0.8 (0.3-0.8) 10^3/uL Eos # (Auto) 0.4 (0.0-0.7) 10^3/uL Baso # (Auto) 0.0 (0.0-0.1) 10^3/uL Abs Immat Gran (auto) 0.02 (0.00-0.03) 10^3/uL Imm/Tot Granulo (auto) 0.2 (0.0-0.5) % Sodium 137 (136-145) mmol/L Potassium 3.3 L (3.5-5.1) mmol/L Chloride 102 (98-107) mmol/L Carbon Dioxide 24.3 (21.0-32.0) mmol/L Anion Gap 14.0 BUN 17.0 (7.0-18.0) mg/dL Creatinine 0.95 (0.55-1.02) mg/dL Est GFR ( Amer) >60 (>=60 mL/min/1.73m^2) Est GFR (Non-Af Amer) >60 (>=60 mL/min/1.73m^2) BUN/Creatinine Ratio 17.9 Glucose 99 (74-106) mg/dL Calcium 8.7 (8.5-10.1) mg/dL Magnesium 1.7 L (1.8-2.4) mg/dL Total Bilirubin 0.2 (0.2-1.0) mg/dL AST 41 H (15-37) U/L ALT 54 (14-59) U/L Alkaline Phosphatase 95 (46-116) U/L Total Protein 7.1 (6.4-8.2) g/dL Albumin 3.2 L (3.4-5.0) g/dL Globulin 3.9 g/dL Albumin/Globulin Ratio 0.8 Lipase 36.0 (16.0-77.0) U/L Urine Color Lt. yellow (YELLOW) Urine Clarity Clear (CLEAR) Urine pH 6.0 (5.0-9.0) Ur Specific [place] 1.010 (1.005-1.025) Urine Protein Negative (NEG/TRACE) mg/dL Urine Glucose (UA) Negative (NEGATIVE) mg/dL Urine Ketones Negative (NEGATIVE) mg/dL Urine Occult Blood Negative (NEGATIVE) Urine Nitrite Negative (NEGATIVE) Urine Bilirubin Negative (NEGATIVE) Urine Urobilinogen 0.2 (0.2-1.0) EU/dL Ur Leukocyte Esterase Trace A (NEGATIVE) Urine RBC None seen (0-2) #/HPF Urine WBC 2-5 A (NONE SEEN) #/HPF Ur Squamous Epith Cells Rare (NONE/RARE) #/LPF Urine Crystals None seen (None Seen) #/HPF Urine Bacteria Trace A (NONE SEEN) #/HPF Urine Casts None seen (NONE SEEN) #/LPF Urine Mucus None seen (NONE SEEN) Ur Culture Indicated? No Discharge Plan Discharge Chief Complaint: Nausea/Vomiting/Diarrhea Clinical Impression: Gastroenteritis, Dehydration, Acute hypokalemia Patient Disposition: Home, Self-Care Time of Disposition Decision: 18:55 Condition: Good Mode of Transportation: Private Vehicle Prescriptions / Home Meds: New promethazine 25 mg tablet 25 mg PO Q6H PRN (Reason: nausea and vomiting) Qty: 14 0RF potassium bicarb-citric acid 25 mEq tablet, effervescent 25 meq PO DAILY Qty: 3 0RF magnesium oxide 250 mg magnesium tablet 250 mg PO DAILY Qty: 3 0RF No Action famotidine 20 mg tablet Print Language: Tamazight Instructions: Dehydration (DC), Acute Nausea and Vomiting (ED) Additional Instructions: Plenty water, Jell-O's, clear broth, Gatorade. Follow-up with primary care. Return to if any symptoms worsen or new symptoms well. Referrals: TYLER DESIR [Primary Care Provider, Family Practice] - 1 week
[2024-09-05] MEDS: 0.9 % SODIUM CHLORIDE 1,000 ML 1000 ML IV ×2 (16:58→18:05)
[2024-09-05 17:19] LABS: Basophils Percent Auto 0.4 % (0.2-2.0); Eosinophils Absolute Auto 0.4 10^3/uL (0.0-0.7); Eosinophils Percent Auto 4.7 % (0.9-7.0); Hematocrit 37.3 % (36.0-48.0); Hemoglobin 13.4 g/dL (12.0-16.0); Immature Granulocytes Abs Auto 0.02 10^3/uL (0.00-0.03); Immature Granulocytes Pct Auto 0.2 % (0.0-0.5); Lymphocytes Absolute Auto 2.4 10^3/uL (1.2-3.8); Lymphocytes Percent Auto 30.1 % (20.5-60.0); Mean Corpuscular HGB Conc 35.9 g/dL (29.9-35.2); Mean Corpuscular Hemoglobin 29.6 pg (26.7-34.0); Mean Corpuscular Volume 82.3 fL (81.0-99.0); Mean Platelet Volume 10.6 fL (9.5-13.5); Monocytes Absolute Auto 0.8 10^3/uL (0.3-0.8); Monocytes Percent Auto 10.4 % (1.7-12.0); Neutrophils Absolute Auto 4.4 10^3/uL (1.4-6.5); Neutrophils Percent Auto 54.2 % (43.0-75.0); Platelet Count 313 10^3/uL (150-450); Red Blood Count 4.53 10^6/uL (4.20-5.40); White Blood Count 8.1 10^3/uL (4.0-11.0)
[2024-09-05 17:34] LABS: Alanine Aminotransferase 54 U/L (14-59); Albumin Globulin Ratio 0.8; Albumin Level 3.2 g/dL (3.4-5.0); Alkaline Phosphatase 95 U/L (46-116); Aspartate Amino Transferase 41 U/L (15-37); BUN Creatinine Ratio 17.9; Bilirubin Total 0.2 mg/dL (0.2-1.0); Calcium 8.7 mg/dL (8.5-10.1); Carbon Dioxide 24.3 mmol/L (21.0-32.0); Chloride 102 mmol/L (98-107); Estimated GFR (African America >60 (>=60 mL/min/1.73m^2); Estimated GFR (Non-African Ame >60 (>=60 mL/min/1.73m^2); Globulin 3.9 g/dL; Glucose 99 mg/dL (74-106); Magnesium 1.7 mg/dL (1.8-2.4); Potassium 3.3 mmol/L (3.5-5.1); Sodium 137 mmol/L (136-145); Total Protein 7.1 g/dL (6.4-8.2)
[2024-09-05 18:34] VITALS: BP 109/64; PULSE 87; O2SAT 98
[2024-09-05 18:40] LABS: Bilirubin Urine NEGATIVE (NEGATIVE); Blood Urine NEGATIVE (NEGATIVE); Clarity Urine CLEAR (CLEAR); Color Urine LT. YELLOW (YELLOW); Glucose Urine UA NEGATIVE (NEGATIVE); Ketones Urine NEGATIVE (NEGATIVE); Leukocyte Esterase Urine TRACE (NEGATIVE); Nitrite Urine NEGATIVE (NEGATIVE); Protein Urine NEGATIVE (NEG/TRACE); Urobilinogen Urine 0.2 EU/dL (0.2-1.0)
[2024-09-05 18:41] LABS: Urine Microscopic Indicated YES
[2024-09-05 18:48] LABS: Bacteria Urine TRACE #/HPF (NONE SEEN); Crystals Seen? None Seen #/HPF (None Seen); Mucus Urine NONE SEEN (NONE SEEN); RBC Urine NONE SEEN #/HPF (0-2); Squamous Epithelial Cell Urine RARE #/LPF (NONE/RARE)
[2024-09-05 18:49] LABS: Cast Seen? NONE SEEN #/LPF (NONE SEEN); Urine Culture Indicated NO
== END 2024-09-05 19:16 | disposition home or self-care (01) ==
PROVIDERS: Physician Assistant; Emergency Provider Emergency Medicine; PCP Nurse Practitioner Family
DX: E86.0 Dehydration (principal); K52.9 Noninfective gastroenteritis and colitis, unspecified; E87.6 Hypokalemia
CPT/HCPCS: 36415; 80053; 81001; 83690; 83735; 85025; 96360; 99284